=== PATIENT | female | born 1980 | race Caucasian/White ===

== ENCOUNTER → 2016-07-23 | Outpatient (CLI) | payer OTHER ==
[~2016-07-23] MED LIST: ALBU1AER9 INH; AMOX875T PO; DICY10CA12 PO; ESTR1TAB2 PO; FLUT1INH3 INH; MECL1TAB40 PO; MECL1TAB42 PO; PRED50TA PO; PRVHFAIN INH; SUMA50TA15 PO; TOPI50TA16 PO; ZNTT/150 PO
[2016-07-23 18:38] LABS: BASO % 0.7 %; BASO ABS # 0.05 K/uL (0-0.2); COMPLETE YES; EOS % 2.1 %; HEMATOCRIT 40.4 % (37-47); IG% 0.1 %; LYMPH % 33.6 %; LYMPH ABS # 2.41 K/uL (1.2-3.4); MEAN CORPUSCULAR HEMOGLOBIN 29.1 pg (25-34); MEAN CORPUSCULAR HGB CONC 34.7 g/dl (32-36); MONO % 4.6 %; NEUT % 58.9 %; PLATELET COUNT 272 K/uL (130-400); RED BLOOD COUNT 4.81 M/uL (4.2-5.4); WHITE BLOOD COUNT 7.17 K/uL (4.8-10.8)
[2016-07-23 19:05] LABS: ALT/SGPT 21 U/L (12-78); AST/SGOT 15 U/L (15-37); BLOOD UREA NITROGEN 10 mg/dl (7-18); BUN/CREATININE RATIO 10.7 (10-20); CALCIUM 9.7 mg/dl (8.5-10.1); CARBON DIOXIDE 25 mmol/L (21-32); CHLORIDE 112 mmol/L (98-107); CREATININE 0.89 mg/dl (0.60-1.20); GLUCOSE 80 mg/dl (70-99); POTASSIUM 4.2 mmol/L (3.5-5.1); SODIUM 144 mmol/L (136-145)
[2016-07-23 19:08] LABS: ALB/GLOB RATIO 1.1 (0.9-2); ALKALINE PHOSPHATASE 63 U/L (45-117)
--- NOTE | 2016-07-23 19:12 | DIAGNOSTIC IMAGING REPORT ---
CHEST AND ABDOMEN 2 VIEWS HISTORY: R10.30 Lower abdominal painRAD COMPARISON: Chest 05/15/2015. FINDINGS: The lungs are clear. The cardiomediastinal silhouette is within normal limits. There is no pneumoperitoneum or pneumatosis. The bowel gas pattern is unremarkable. No evidence for bowel obstruction. No renal or ureteral calculi. There are are a few calcifications in the deep pelvis consistent with phleboliths. IMPRESSION: No acute cardiopulmonary process. No evidence for bowel obstruction. Electronically signed by: Krishan Vera M.D. 07/23/2016 7:10 PM Dictated Date/Time: 07/23/2016 7:08 PM
== END | disposition home or self-care (01) ==
LOC: C.LAB 17:49
PROVIDERS: ATTEND Nurse Practitioner Adult Health
DX: K52.9 Noninfective gastroenteritis and colitis, unspecified (principal); R10.30 Lower abdominal pain, unspecified

== ENCOUNTER 2016-08-10 00:20 | Emergency (ER) | payer OTHER ==
[~2016-08-10] VITALS: Ht 154.9 cm; Wt 48.9 kg
[~2016-08-10 00:20] MED LIST changes: -ALBU1AER9 INH; -AMOX875T PO; -MECL1TAB40 PO; -PRED50TA PO
[2016-08-10 00:24] VITALS: TEMP 36.8; Ht 154.9 cm; Wt 48.9 kg
[2016-08-10] MEDS ORDERED: LIDOCAINE HCL 2% VISC SOLN 20 ML UDC MT STA (00:38)
[2016-08-10] MEDS ORDERED: ALBUT/IPRATROP 3MG/0.5MG NEB 3 ML VIAL INH STA (00:38)
[2016-08-10] MEDS ORDERED: BUTALBITAL/ASA/CAFFEINE/COD 50/325/40/30 MG CAP PO STA (00:41)
[2016-08-10 01:00] VITALS: O2SAT 99
[2016-08-10] MEDS ORDERED: AMOXICILLIN/CLAVULANATE TAB 875 MG TAB PO STA (01:20)
[2016-08-10] MEDS ORDERED: ALBUTEROL HFA 8 GM INHALER INH STA (01:20)
[2016-08-10] MEDS ORDERED: PRED50TA PO (02:01)
[2016-08-10] MEDS ORDERED: AMOX875T PO (02:01)
[2016-08-10 02:15] VITALS: BP 120/86; PULSE 85; O2SAT 99
--- NOTE | 2016-08-10 04:12 | EMERGENCY ROOM VISIT NOTE ---
History First contact with patient: 00:28 Chief Complaint: SORETHROAT Stated Complaint: SORE THROAT AND CAN'T BREATHE History of Present Illness The patient is a 35 year old female who presents to the Emergency Room with complaints of cough, congestion, sinus pain congestion and headache for the past week. Patient does smoke. She also has a sore throat. Subjective fever and chills but no temperature was taken. Patient denies neck stiffness, chest pain, dyspnea, abdominal pain, vomiting, diarrhea. She is able tolerate by mouth fluids and food. Review of Systems See HPI for pertinent positives & negatives. A total of 10 systems reviewed and were otherwise negative. Past Medical/Surgical History Medical Problems: (1) Asthma (2) Bronchitis (3) section (4) Contusion of right leg (5) COPD (chronic obstructive pulmonary disease) (6) Ear pain (7) Endometriosis (8) Hair follicle infection (9) Headache (10) Leukocytosis (11) Migraine (12) Migraine (13) Migraines (14) Ovarian cyst (15) Ovarian cyst (16) Partial hysterectomy (17) Pharyngitis (18) Pharyngitis (19) Pneumonia (20) Productive cough (21) SOB (shortness of breath) (22) Tubal ligation (23) URI (upper respiratory infection) Surgical Problems: (1) History of right oophorectomy Family History FH: heart disease FHx: pulmonary embolism Social History Smoking Status: Current Every Day Smoker Alcohol Use: none Drug Use: none Marital Status: Housing Status: lives with family Occupation Status: employed Current/Historical Medications Scheduled Amoxicillin & Pot Clavulanate (Augmentin 875-125 mg), 1 TAB PO BID Estradiol (Estrace), 1 MG PO HS Fluticasone Furoate (Inhalatio (Arnuity Ellipta), 1 PUFF INH QAM Prednisone (Prednisone), 50 MG PO DAILY Ranitidine (Zantac), 150 MG PO BID Topiramate (Topamax), 50 MG PO QAM Topiramate (Topamax), 100 MG PO HS Scheduled PRN Albuterol (Ventolin Hfa), 2 PUFF INH QID PRN for Shortness of Breath Dicyclomine Hcl (Dicyclomine Hcl), 10 MG PO TID PRN for ABD PAIN Meclizine Hcl (Meclizine Hcl), 25 MG PO TID PRN for VERTIGO Sumatriptan Succinate (Imitrex), 50 MG PO PRN PRN for Migraine Allergies Coded Allergies: No Known Allergies (Verified , 08/08/16) Physical Exam Vital Signs Date Time Temp Pulse Resp B/P Pulse Ox O2 Delivery O2 Flow Rate FiO2 08/10/16 02:15 85 18 120/86 99 08/10/16 01:00 99 Room Air 08/10/16 00:24 36.8 86 18 102/66 100 Room Air 08/10/16 00:24 100 Room Air Pain Rating (0-10): 6.0 Physical Exam VITALS: Vitals are noted on the nurse's note and reviewed by myself. Vital signs stable. GENERAL: Pleasant female, in no acute distress, nondiaphoretic, well-developed well-nourished. SKIN: The skin was without rashes, erythema, edema, or bruising. There is no tenting of the skin. Capillary reflex less than 2 seconds. HEAD: Normocephalic atraumatic. EARS: External auditory canals clear, tympanic membranes pearly parks without erythema or effusion bilaterally. EYES: Pupils equal round and reactive to light and accommodation. Conjunctivae without injection, sclerae without icterus. Extraocular movements intact. NOSE: Patent, turbinates without inflammation or discharge. Bilateral maxillary sinus tenderness. MOUTH: Mucous membranes moist. Pharynx without erythema or exudate. Uvula midline. Airway patent. Tongue does not deviate. NECK: Supple without nuchal rigidity. No lymphadenopathy. No thyromegaly. Cervical spine is nontender. No JVD. No meningeal signs HEART: Regular rate and rhythm without murmurs gallops or rubs. LUNGS: Mild diffuse end expiratory wheezes, without rales or rhonchi. No dullness to percussion. No retractions or accessory muscle use. ABDOMEN: Positive bowel sounds x 4. Normal tympanic percussion. Soft, nontender, without masses or organomegaly. Nielsen sign negative. No guarding or rebound tenderness. MUSCULOSKELETAL: No muscle atrophy, erythema, or edema noted. NEURO: Patient was alert and oriented to person place and time. Normal sensation to light and sharp touch. No focal neurological deficits. Medical Decision & Procedures Medications Administered Medications (Trade) Dose Ordered Sig/Augusto Route Start Time Stop Time Status Last Admin Dose Admin Lidocaine HCl (Viscous Lidocaine 2% Soln) 10 ml NOW STAT MT 08/10/16 00:38 08/10/16 00:40 DC 08/10/16 00:51 10 ML Albuterol/ Ipratropium (Duoneb) 3 ml NOW STAT INH 08/10/16 00:38 08/10/16 00:40 DC 08/10/16 00:50 3 ML Prednisone (PredniSONE TAB) 60 mg NOW STAT PO 08/10/16 00:38 08/10/16 00:40 DC 08/10/16 00:50 60 MG Butalbital/ Aspirin/Caffeine/ Codeine (Fiorinal W/ Codeine Cap) 1 cap NOW STAT PO 08/10/16 00:41 08/10/16 00:43 DC 08/10/16 01:05 1 CAP Amoxicillin/ Clavulanate Potassium (Augmentin Tab) 875 mg NOW STAT PO 08/10/16 01:20 08/10/16 01:21 DC 08/10/16 02:06 875 MG Albuterol (Ventolin Hfa Inhaler) 2 puffs ONE STAT INH 08/10/16 01:20 08/10/16 01:21 DC 08/10/16 02:06 2 PUFFS ED Course Prior records/ancillary studies reviewed. Triage Nursing notes reviewed. Additional history obtained from family The patient's history was concerning for cold symptoms Differential diagnosis: Etiologies such as viral syndrome, otitis, pharyngitis, pneumonia, influenza, meningitis, sinusitis, sepsis, bacteremia, as well as others were entertained. Physical examination: Patient is alert, interactive and tolerating fluids ER treatment provided: Nebulizer, Augmentin On reassessment the patient felt better. Diagnostics interpreted by me: The labs revealed negative strep test, and for culture Imaging studies: Chest x-ray with no acute consolidation, pneumothorax or free air per my interpretation This appears to be consistent with sinusitis. Patient was started on antibiotics as symptoms have been present for greater than a week. She no signs of meningitis. She is afebrile and nontoxic.. She was advised to take medications as directed and to follow-up with family doctor in a few days or here in the ER sooner for high fevers, lethargy, neck status, worsening signs or symptoms or as needed. She was strongly encouraged to quit smoking. By the evaluation outlined above emergent etiologies such as otitis, pharyngitis, pneumonia, meningitis, urinary tract infection, sepsis, bacteremia, as well as others were deemed relatively unlikely. The pt informed about the findings as listed above. All questions were answered and pleased with the treatment. Return instructions were outlined and the patient was discharged in stable condition. Outpatient prescription management: augmentin, prednisone Referral: The patient was referred back to their primary care physician for follow-up in 2 to 3 days for a recheck of the current condition. Medical Decision as above Impression Primary Impression: Acute maxillary sinusitis Departure Information Dispostion Home / Self-Care Condition GOOD Prescriptions Prednisone (Prednisone) 50 Mg Tab 50 MG PO DAILY for 4 Days, #4 TAB Prov: Lupe Cristina PA-C 08/10/16 Amoxicillin & Pot Clavulanate (Augmentin 875-125 mg) 1 Tab Tab 1 TAB PO BID for 9 Days, #18 TAB Prov: Lupe Cristina PA-C 08/10/16 Forms HOME CARE DOCUMENTATION FORM, IMPORTANT VISIT INFORMATION Patient Instructions Sinusitis Acute, [facility] Additional Instructions Amoxicillin Clavulanate (Augmentin) 875mg: Take one pill twice daily for 10 days for your infection. All antibiotics can cause diarrhea. If this occurs and you feel worse or it does not resolve in 1-2 days follow up with your doctor or return to the Emergency Department as this could be signs of serious underlying problems. Any medication can cause an allergic reaction, stop the pills immediately and return to the ER for rash, hives, breathing difficulties, or swelling. Albuterol Inhaler: Take 2 puffs four times daily for five days, then as needed. Prednisone 50mg: Once daily until the prescription is finished. It is best to take this earlier in the day as some patients note occasional difficulty falling asleep when taken in the late evening. Acetaminophen(Tylenol) may be used for fever or pain. Use 1000mg every six hours as needed. Avoid using more than 3000mg in a 24 hour period. (AND/OR) Ibuprofen(Motrin, Advil) may be used for fever or pain. Use 600mg every six hours as needed. Take with food. Avoid using more than 2400mg in a 24 hour period. Do not use 2400mg per day for more than three consecutive days without physician direction. Prolonged inappropriate use can lead to stomach upset or ulcers. Rest and drink plenty of fluids. Avoid smoke/smoking, fumes, dust, or any triggers in the past that may have affected your breathing. Continue current medications. Return to the ER for chest pain, difficulty breathing, fevers, vomiting, worsening of your condition, or as needed. Follow up with your primary physician this week for a recheck of your current condition.
--- NOTE | 2016-08-10 08:01 | DIAGNOSTIC IMAGING REPORT ---
CHEST 2 VIEWS ROUTINE HISTORY: cough/congestion COMPARISON: Chest 07/23/2016. FINDINGS: The lungs are clear. Cardiac silhouette is normal in size. No pleural effusions. No pneumothorax. IMPRESSION: No acute process. Electronically signed by: Krishan Vera M.D. 08/10/2016 8:00 AM Dictated Date/Time: 08/10/2016 7:58 AM
== END 2016-08-10 02:16 | disposition home or self-care (01) ==
LOC: C.EDB 00:21 → C.EDA 02:16
DX: J01.00 Acute maxillary sinusitis, unspecified (principal); J44.9 Chronic obstructive pulmonary disease, unspecified; J45.909 Unspecified asthma, uncomplicated; N83.209 Unspecified ovarian cyst, unspecified side; F17.200 Nicotine dependence, unspecified, uncomplicated; Z98.51 Tubal ligation status; Z90.710 Acquired absence of both cervix and uterus; Z87.828 Personal history of other (healed) physical injury and trauma; Z86.19 Personal history of other infectious and parasitic diseases; Z79.899 Other long term (current) drug therapy; Z82.49 Family history of ischemic heart disease and other diseases of the circulatory system

== ENCOUNTER → 2016-08-13 | Day surgery (SDC) | payer OTHER ==
[2016-08-08 13:22] VITALS: BMI 21.0
[~2016-08-13] VITALS: Ht 154.9 cm; Wt 50.0 kg
[~2016-08-13] MED LIST changes: +AMOX875T PO; +LIDOCAINE HCL 2% 2 ML VIAL (20MG/ML) ONE; +PRED50TA PO; +PROPOFOL IV EMULSION 10 MG/ML 20 ML VIAL IV ONE; +SODIUM CHLORIDE 0.9% 500ML 500 ML IV ONE
[2016-08-13 14:09] VITALS: Ht 154.9 cm; Wt 50.0 kg
--- NOTE | 2016-08-13 15:10 | Endo History and Physical ---
History & Physical Date of Service: Aug 13, 2016. Chief Complaint: DIARRHEA, ABD CRAMPING. Referring Physician: KATIE LI History of Present Illness 35 yo CF who presents for colonoscopy secondary to diarrhea and abdominal cramping. Past Medical History Asthma, Reflux, Gynecological Problems, COPD Past Surgical History Hx Cardiac Surgery: No Hx Internal Defibrillator: No Hx Pacemaker: No Hx Abdominal Surgery: Yes (LAPAROSCOPY, X 2, TUBAL ligation, PARTIAL HYSTERECTOMY) Hx of Implantable Prosthesis: No Hx Post-Op Nausea and Vomiting: Yes Hx Cancer Surgery: No Hx Thoracic Surgery: No Hx Orthopedic: No Hx Urinary Tract Surgery: No Family History None Social History Smoking Status: Current Every Day Smoker Hx Substance Use: No Hx Alcohol Use: No Allergies Coded Allergies: No Known Allergies (Verified , 08/08/16) Current Medications Reported Home Medications Medications Dose Route/Sig Max Daily Dose Days Date Category Prednisone 50 Mg Tab 50 Mg PO DAILY 4 08/10/16 Rx Augmentin 875-125 mg (Amoxicillin & Pot Clavulanate) 1 Tab Tab 1 Tab PO BID 9 08/10/16 Rx Ventolin Hfa (Albuterol) 60 Puffs/5400 Mcg Aers 2 Puff INH QID PRN 08/08/16 Reported Topamax (Topiramate) 50 Mg Tab 100 Mg PO HS 08/08/16 Reported Topamax (Topiramate) 50 Mg Tab 50 Mg PO QAM 08/08/16 Reported Imitrex (Sumatriptan Succinate) 50 Mg Tab 50 Mg PO PRN PRN 08/08/16 Reported Zantac (Ranitidine HCl) 150 Mg Tab 150 Mg PO BID 08/08/16 Reported Meclizine Hcl 25 Mg Tab 25 Mg PO TID PRN 08/08/16 Reported Dicyclomine Hcl 10 Mg Cap 10 Mg PO TID PRN 08/08/16 Reported Arnuity Ellipta (Fluticasone Furoate (Inhalatio) 100 Mcg/Act Inh 1 Puff INH QAM 08/08/16 Reported Estrace (Estradiol) 1 Mg Tab 1 Mg PO HS 02/28/16 Reported Vital Signs Weight (Kilograms): 50.00 Height (Feet): 5 Height (Inches): 1 Date Time Temp Pulse Resp B/P Pulse Ox O2 Delivery O2 Flow Rate FiO2 08/13/16 14:17 36.4 77 18 102/60 96 Room Air Physical Exam General Appearance: WD/WN, no apparent distress Respiratory/Chest: Auscultation: breath sounds normal Cardiovascular: Heart Auscultation: RRR Abdomen: Bowel Sounds: normal Inspection & Palpation: soft, non-distended, no tenderness, guarding & rebound Assessment and Plan Assessment: 35 yo CF who presents for colonoscopy secondary to diarrhea and abdominal cramping. Plan: Proceed with colonoscopy.
--- NOTE | 2016-08-13 15:29 | Discharge Instructions ---
Endoscopy Patient Instructions Date / Procedure(s) Performed Aug 13, 2016. Colonoscopy Allergy Information Coded Allergies: No Known Allergies (Verified , 08/08/16) Discharge Date / Findings Aug 13, 2016. Internal hemorrhoids Random colon biopsies Stool studies collected Medication Instructions OK to resume all medications today as prescribed. Reported Home Medications Medications Dose Route/Sig Max Daily Dose Days Date Category Prednisone 50 Mg Tab 50 Mg PO DAILY 4 08/10/16 Rx Augmentin 875-125 mg (Amoxicillin & Pot Clavulanate) 1 Tab Tab 1 Tab PO BID 9 08/10/16 Rx Ventolin Hfa (Albuterol) 60 Puffs/5400 Mcg Aers 2 Puff INH QID PRN 08/08/16 Reported Topamax (Topiramate) 50 Mg Tab 100 Mg PO HS 08/08/16 Reported Topamax (Topiramate) 50 Mg Tab 50 Mg PO QAM 08/08/16 Reported Imitrex (Sumatriptan Succinate) 50 Mg Tab 50 Mg PO PRN PRN 08/08/16 Reported Zantac (Ranitidine HCl) 150 Mg Tab 150 Mg PO BID 08/08/16 Reported Meclizine Hcl 25 Mg Tab 25 Mg PO TID PRN 08/08/16 Reported Dicyclomine Hcl 10 Mg Cap 10 Mg PO TID PRN 08/08/16 Reported Arnuity Ellipta (Fluticasone Furoate (Inhalatio) 100 Mcg/Act Inh 1 Puff INH QAM 08/08/16 Reported Estrace (Estradiol) 1 Mg Tab 1 Mg PO HS 02/28/16 Reported Provider Instructions Activity Restrictions - No exercising or heavy lifting for 24 hours. - Do not drink alcohol the day of the procedure. - Do not drive a car or operate machinery until the day after the procedure. - Do not make any important decisions or sign important papers in 24 hours after the procedure. Following Day: - Return to full activity which may include returning to work/school. Diet Start your diet with liquids and light foods (jello, soup, juice, toast). Then eat your usual diet if not nauseated. Treatment For Common After Affects For mild abdominal pain, bloating, or excessive gas: - Rest - Eat lightly - Lie on right side Follow-Up Information Follow-up with KATIE LI as scheduled Anesthesia Information What You Should Know You have had a procedure that required some medicine to reduce anxiety and discomfort. This treatment is called moderate sedation. After receiving the treatment, you may be sleepy, but you will be able to breathe on your own. The effects of the treatment may last for several hours. Follow these instructions along with Activity/Diet recommendations noted above: * Do NOT do anything where dizziness or clumsiness would be dangerous. * Rest quietly at home today, then you can be up and about tomorrow. * Have a responsible person stay with you the rest of today. * You may have had an I.V. today. If so, you may take the dressing off later today. Recommendations Call your doctor if: * Trouble breathing * Continuous vomiting for more than 24 hours * Temperature above 101 degrees * Severe abdominal pain or bloating * Pain not relieved by pain medicine ordered * There is increased drainage or redness from any incision * A large amount of rectal bleeding greater than 2-3 tablespoons. (If you had a polyp/s removed or have hemorrhoids, a small amount of blood - from the rectum is to be expected.) * You have any unanswered questions or concerns. IN THE EVENT OF A SERIOUS EMERGENCY, GO TO THE NEAREST EMERGENCY ROOM Your discharge instructions were prepared by provider Domingo Allen. Patient Instructions Signature Page Rita Huff Patient (or Guardian) Signature/Date: I have read and understand the instructions given to me by my caregivers. Caregiver/RN/Doctor Signature/Date: The above-named patient and/or guardian has received patient instructions on this date. + Original Patient Signature Page (only) stays with chart. Please make copy for patient.
--- NOTE | 2016-08-13 15:35 | GI REPORT ---
Procedure Date: 08/13/2016 2:57 PM Procedure: Colonoscopy Indications: Chronic diarrhea Medicines: Monitored Anesthesia Care Complications: No immediate complications. Estimated Blood Loss: Estimated blood loss: none. Procedure: Pre-Anesthesia Assessment: - Prior to the procedure, a History and Physical was performed, and patient medications and allergies were reviewed. The patient's tolerance of previous anesthesia was also reviewed. The risks and benefits of the procedure and the sedation options and risks were discussed with the patient. All questions were answered, and informed consent was obtained. Prior Anticoagulants: The patient has taken no previous anticoagulant or antiplatelet agents. ASA Grade Assessment: II - A patient with mild systemic disease. After reviewing the risks and benefits, the patient was deemed in satisfactory condition to undergo the procedure. After I obtained informed consent, the scope was passed under direct vision. Throughout the procedure, the patient's blood pressure, pulse, and oxygen saturations were monitored continuously. The scope was introduced through the anus and advanced to the terminal ileum. The colonoscopy was performed without difficulty. The patient tolerated the procedure well. The quality of the bowel preparation was good. The terminal ileum, ileocecal valve, appendiceal orifice, and rectum were photographed. Findings: Non-bleeding internal hemorrhoids were found during retroflexion. The hemorrhoids were small. Multiple random biopsies were obtained with cold forceps for histology in the entire colon. Fluid aspiration for cytology was performed in the entire colon. Impression: - Non-bleeding internal hemorrhoids. - Multiple random biopsies were obtained in the entire colon. - Fluid aspiration was performed. Recommendation: - Resume previous diet. - Continue present medications. - Repeat colonoscopy for surveillance based on pathology results. - Return to primary care physician as previously scheduled. Domingo Allen DO 08/13/2016 3:35:08 PM This report has been signed electronically. Note Initiated On: 08/13/2016 2:57 PM
--- NOTE | 2016-08-13 15:49 | Anesthesiology Progress Note ---
Anesthesia Post Op Note Date & Time Aug 13, 2016 at 15:49 Vital Signs Pain Intensity: 0 Vital Signs Past 12 Hours Date Time Temp Pulse Resp B/P Pulse Ox O2 Delivery O2 Flow Rate FiO2 08/13/16 15:46 78 18 112/54 99 Room Air 08/13/16 15:31 78 18 101/55 99 Room Air 08/13/16 14:17 36.4 77 18 102/60 96 Room Air Notes Mental Status: alert / awake / arousable, participated in evaluation Pt Amnestic to Procedure: Yes Nausea / Vomiting: adequately controlled Pain: adequately controlled Airway Patency, RR, SpO2: stable & adequate BP & HR: stable & adequate Hydration State: stable & adequate Anesthetic Complications: no major complications apparent
[2016-08-13 16:06] VITALS: BP 116/56; PULSE 85; O2SAT 99
== END | disposition home or self-care (01) ==
LOC: C.GI 13:52
PROVIDERS: ATTEND Internal Medicine
DX: R19.7 Diarrhea, unspecified (principal); K57.30 Diverticulosis of large intestine without perforation or abscess without bleeding; K21.9 Gastro-esophageal reflux disease without esophagitis

== ENCOUNTER → 2016-08-25 | Outpatient (CLI) | payer OTHER ==
[~2016-08-25] MED LIST changes: -AMOX875T PO; -LIDOCAINE HCL 2% 2 ML VIAL (20MG/ML) ONE; -PRED50TA PO; -PROPOFOL IV EMULSION 10 MG/ML 20 ML VIAL IV ONE; -SODIUM CHLORIDE 0.9% 500ML 500 ML IV ONE
[2016-08-28 16:28] LABS: IGA SERUM 198 mg/dL (81-463); TIS TRANS IGA 1 U/mL (<4)
== END | disposition home or self-care (01) ==
LOC: C.LAB 17:59
PROVIDERS: ATTEND Internal Medicine
DX: R19.7 Diarrhea, unspecified (principal); R10.9 Unspecified abdominal pain

== ENCOUNTER → 2016-10-14 | Outpatient (CLI) | payer OTHER ==
[~2016-10-14] MED LIST changes: +AMOX875T PO
[2016-10-15 07:33] LABS: ESTIMATED AVERAGE GLUCOSE 88 mg/dl; HA1C FLAG Normal (Normal)
== END | disposition home or self-care (01) ==
LOC: C.LAB 16:58
PROVIDERS: ATTEND Nurse Practitioner Adult Health
DX: R20.2 Paresthesia of skin (principal)

== ENCOUNTER → 2016-10-27 | Outpatient (CLI) | payer OTHER ==
--- NOTE | 2016-10-27 08:37 | DIAGNOSTIC IMAGING REPORT ---
GI W/AIR SMALL BOWEL ROUTINE CLINICAL HISTORY: K52.9 Chronic diarrhea of unknown [id number] Lower abdominal ppain COMPARISON STUDY: None FLUOROSCOPY TIME: 3.8 minutes. FINDINGS: Patient initiated swallowing function well. Esophagus normal in course and caliber. Gastric esophageal junction is normal. Mucosal pattern and transit time throughout the small bowel within normal limits. Spot films the terminal ileum are within normal limits. Stomach is unremarkable. IMPRESSION: Normal study Electronically signed by: Ramakrishna Abernathy M.D. 10/27/2016 8:35 AM Dictated Date/Time: 10/27/2016 8:35 AM
== END | disposition home or self-care (01) ==
LOC: C.RAD 07:13
PROVIDERS: ATTEND Registered Nurse
DX: K52.9 Noninfective gastroenteritis and colitis, unspecified (principal); R10.30 Lower abdominal pain, unspecified

== ENCOUNTER → 2016-11-26 | Outpatient (CLI) | payer OTHER ==
--- NOTE | 2016-11-26 09:46 | DIAGNOSTIC IMAGING REPORT ---
BILIARY ABDOMEN LIMITED CLINICAL HISTORY: Nausea, vomiting, chronic diarrhea. COMPARISON STUDY: No previous studies for comparison. FINDINGS: The pancreas appears sonographically normal. The liver appears sonographically normal. The gallbladder appears sonographically normal. There is no ductal dilatation. The common bile duct measures 2 mm. There is no right-sided hydronephrosis. IMPRESSION: Normal biliary ultrasound. Electronically signed by: Sourav Weber M.D. 11/26/2016 9:45 AM Dictated Date/Time: 11/26/2016 9:44 AM
== END | disposition home or self-care (01) ==
LOC: C.ULTR 09:19
PROVIDERS: ATTEND Registered Nurse
DX: R11.2 Nausea with vomiting, unspecified (principal); K52.9 Noninfective gastroenteritis and colitis, unspecified; R10.9 Unspecified abdominal pain

== ENCOUNTER 2017-02-11 09:34 | Emergency (ER) | payer OTHER ==
[~2017-02-11] VITALS: Ht 154.9 cm; Wt 48.3 kg
[~2017-02-11 09:34] MED LIST changes: -AMOX875T PO
[2017-02-11 09:35] VITALS: TEMP 36.6; Ht 154.9 cm; Wt 48.3 kg
[2017-02-11 10:02] VITALS: O2SAT 98
[2017-02-11] MEDS ORDERED: ONDANSETRON 8 MG/54 ML D5W IV STA (10:08)
[2017-02-11] MEDS ORDERED: SODIUM CHLORIDE 0.9% 1000ML 1,000 ML IV STA (10:08)
--- NOTE | 2017-02-11 10:46 | DIAGNOSTIC IMAGING REPORT ---
HEAD CT NONCONTRAST CT DOSE: 638.56 mGycm HISTORY: EVALUATE ALTERED MENTAL STATUS/WEAKNESS TECHNIQUE: Multiaxial CT images of the head were performed without the use of intravenous contrast. Automated exposure control was utilized for this study. A dose lowering technique was utilized adhering to the principles of ALARA. Comparison: Head CT 12/31/2011. Findings: The paranasal sinuses and mastoid air cells are clear. The calvarium and skull base are intact. The ventricles and sulci are within normal limits. There is no mass, hematoma, midline shift, or acute infarct. Impression: No acute intracranial abnormality. Electronically signed by: Krishan Vera M.D. 02/11/2017 10:45 AM Dictated Date/Time: 02/11/2017 10:38 AM
[2017-02-11 10:58] LABS: BASO % 0.6 %; BASO ABS # 0.04 K/uL (0-0.2); COMPLETE YES; EOS % 0.9 %; HEMATOCRIT 39.5 % (37-47); LYMPH ABS # 2.34 K/uL (1.2-3.4); MEAN CELL VOLUME 84.9 fL (80-100); MEAN CORPUSCULAR HGB CONC 34.2 g/dl (32-36); MEAN PLATELET VOLUME 10.2 fL (7.4-10.4); MONO % 5.2 %; NEUT % 57.3 %; PLATELET COUNT 285 K/uL (130-400); RED BLOOD COUNT 4.65 M/uL (4.2-5.4)
[2017-02-11 11:07] LABS: PROTHROMBIN TIME (PATIENT) 10.7 SECONDS (9.0-12.0)
[2017-02-11 11:13] LABS: BUN/CREATININE RATIO 5.7 (10-20); CALCIUM 9.2 mg/dl (8.5-10.1); POTASSIUM 3.1 mmol/L (3.5-5.1)
[2017-02-11] MEDS ORDERED: POTASSIUM CHLORIDE 10 MEQ TABCR PO STA (11:42)
--- NOTE | 2017-02-11 11:42 | EMERGENCY ROOM VISIT NOTE ---
History Report prepared by Yobany: Latoya Fernandez Under the Supervision of: Dr. Sharan Grant D.O. First contact with patient: 10:01 Chief Complaint: NEURO SYMPTOMS Stated Complaint: RIGHT SIDE NUMBNESS,RIGHT EYE DROOPINESS History of Present Illness The patient is a 36 year old female who presents to the Emergency Room with complaints of persistent neuro symptoms starting yesterday at 1415. She reports that her right arm and leg became tingly and numb yesterday. Her right hand seemed to spasm and she was unable to use her right hand. Her right eye seems to be droopy. Currently, her symptoms seem to be improved. Her right leg is still numb and her hand feels sore, but she is able to use it. She reports nausea. She is able to walk. She denies any chest pain. She has a history of migraines. Source of History: patient Onset: 1415 yesterday Position: other (global) Quality: other (neuro symptoms) Timing: other (persistent) Associated Symptoms: + nausea, + numbness (right arm, right leg), No chest pain Note: Pt reports right eye droopy, right hand spasm. Review of Systems See HPI for pertinent positives & negatives. A total of 10 systems reviewed and were otherwise negative. Past Medical & Surgical Medical Problems: (1) Asthma (2) Bronchitis (3) section (4) Contusion of right leg (5) COPD (chronic obstructive pulmonary disease) (6) Ear pain (7) Endometriosis (8) Hair follicle infection (9) Headache (10) Leukocytosis (11) Migraine (12) Migraine (13) Migraines (14) Ovarian cyst (15) Ovarian cyst (16) Partial hysterectomy (17) Pharyngitis (18) Pharyngitis (19) Pneumonia (20) Productive cough (21) SOB (shortness of breath) (22) Tubal ligation (23) URI (upper respiratory infection) Surgical Problems: (1) History of right oophorectomy Family History FH: heart disease FHx: pulmonary embolism Social History Smoking Status: Current Every Day Smoker Alcohol Use: none Drug Use: none Marital Status: Housing Status: lives with family Occupation Status: employed Current/Historical Medications Scheduled Estradiol (Estrace), 1 MG PO HS Fluticasone Furoate (Inhalatio (Arnuity Ellipta), 1 PUFF INH QAM Ranitidine (Zantac), 150 MG PO BID Topiramate (Topamax), 50 MG PO QAM Topiramate (Topamax), 100 MG PO HS Scheduled PRN Albuterol (Ventolin Hfa), 2 PUFF INH QID PRN for Shortness of Breath Dicyclomine Hcl (Dicyclomine Hcl), 10 MG PO TID PRN for ABD PAIN Meclizine Hcl (Meclizine Hcl), 25 MG PO TID PRN for VERTIGO Sumatriptan Succinate (Imitrex), 50 MG PO PRN PRN for Migraine Allergies Coded Allergies: No Known Allergies (Verified , 08/08/16) Physical Exam Vital Signs Date Time Temp Pulse Resp B/P (MAP) Pulse Ox O2 Delivery O2 Flow Rate FiO2 02/11/17 12:09 55 18 90/65 98 Room Air 02/11/17 11:24 57 18 92/55 02/11/17 10:02 98 Room Air 02/11/17 09:59 66 02/11/17 09:35 36.6 65 16 126/83 99 Physical Exam VITAL SIGNS: were reviewed as above. GENERAL:Non-toxic in appearance. SKIN: Warm dry and pink. HEAD: Normocephalic and atraumatic. OROPHARYNX: Is clear and moist NECK: Supple without lymphadenopathy or meningismus. LUNGS: clear. HEART: Regular rate and rhythm. ABDOMEN: Soft and nontender. EXTREMITIES: Warm and well perfused. NEUROLOGICALLY: Awake alert and oriented without focal deficit. Cranial nerves 2 -12 are intact. There is no pronator drift. Cerebellar testing is within normal limits. There is no nystagmus. There is no facial droop. Speech is clear. Vision is grossly normal. MUSCULOSKELETAL: Good muscle tone. No evidence of trauma. Medical Decision & Procedures ER Provider Diagnostic Interpretation: Radiology results as stated below per my review and radiologist interpretation: HEAD CT NONCONTRAST CT DOSE: 638.56 mGycm HISTORY: EVALUATE ALTERED MENTAL STATUS/WEAKNESS TECHNIQUE: Multiaxial CT images of the head were performed without the use of intravenous contrast. Automated exposure control was utilized for this study. A dose lowering technique was utilized adhering to the principles of ALARA. Comparison: Head CT 12/31/2011. Findings: The paranasal sinuses and mastoid air cells are clear. The calvarium and skull base are intact. The ventricles and sulci are within normal limits. There is no mass, hematoma, midline shift, or acute infarct. Impression: No acute intracranial abnormality. Electronically signed by: Krishan Vera M.D. 02/11/2017 10:45 AM Dictated Date/Time: 02/11/2017 10:38 AM Laboratory Results 02/11/17 09:50 Red Blood Count 4.65, Mean Corpuscular Volume 84.9, Mean Corpuscular Hemoglobin 29.0, Mean Corpuscular Hemoglobin Concent 34.2, Mean Platelet Volume 10.2, Neutrophils (%) (Auto) 57.3, Lymphocytes (%) (Auto) 36.0, Monocytes (%) (Auto) 5.2, Eosinophils (%) (Auto) 0.9, Basophils (%) (Auto) 0.6, Neutrophils # (Auto) 3.72, Lymphocytes # (Auto) 2.34, Monocytes # (Auto) 0.34, Eosinophils # (Auto) 0.06, Basophils # (Auto) 0.04 02/11/17 09:50 Test 02/11/17 09:50 White Blood Count 6.50 K/uL (4.8-10.8) Red Blood Count 4.65 M/uL (4.2-5.4) Hemoglobin 13.5 g/dL (12.0-16.0) Hematocrit 39.5 % (37-47) Mean Corpuscular Volume 84.9 fL (80-100) Mean Corpuscular Hemoglobin 29.0 pg (25-34) Mean Corpuscular Hemoglobin Concent 34.2 g/dl (32-36) Platelet Count 285 K/uL (130-400) Mean Platelet Volume 10.2 fL (7.4-10.4) Neutrophils (%) (Auto) 57.3 % Lymphocytes (%) (Auto) 36.0 % Monocytes (%) (Auto) 5.2 % Eosinophils (%) (Auto) 0.9 % Basophils (%) (Auto) 0.6 % Neutrophils # (Auto) 3.72 K/uL (1.4-6.5) Lymphocytes # (Auto) 2.34 K/uL (1.2-3.4) Monocytes # (Auto) 0.34 K/uL (0.11-0.59) Eosinophils # (Auto) 0.06 K/uL (0-0.5) Basophils # (Auto) 0.04 K/uL (0-0.2) RDW Standard Deviation 39.2 fL (36.4-46.3) RDW Coefficient of Variation 12.8 % (11.5-14.5) Immature Granulocyte % (Auto) 0.0 % Immature Granulocyte # (Auto) 0.00 K/uL (0.00-0.02) Prothrombin Time 10.7 SECONDS (9.0-12.0) Prothromb Time International Ratio 1.0 (0.9-1.1) Activated Partial Thromboplast Time 27.1 SECONDS (21.0-31.0) Partial Thromboplastin Ratio 1.0 Anion Gap 6.0 mmol/L (3-11) Est Creatinine Clear Calc Drug Dose 58.6 ml/min Estimated GFR () 83.9 Estimated GFR (Non- 72.4 BUN/Creatinine Ratio 5.7 (10-20) Calcium Level 9.2 mg/dl (8.5-10.1) Laboratory results as stated above per my review. Medications Administered Medications (Trade) Dose Ordered Sig/Augusto Route Start Time Stop Time Status Last Admin Dose Admin Sodium Chloride 1,000 ml @ 999 mls/hr Q1H1M STAT IV 02/11/17 10:08 02/11/17 11:08 DC 02/11/17 10:12 999 MLS/HR Ondansetron HCl (Zofran 8mg Iv) 8 mg NOW STAT IV 02/11/17 10:08 02/11/17 10:10 DC 02/11/17 10:40 8 MG Potassium Chloride (Klor-Con M10) 40 meq NOW STAT PO 02/11/17 11:42 02/11/17 11:43 DC 02/11/17 12:07 40 MEQ ECG Indication: nausea Rate (beats per minute): 52 Rhythm: sinus bradycardia Findings: no ectopy, other (no acute injury) ED Course 1004: Previous medical records were reviewed. The patient was evaluated in room A4B. A complete history and physical examination was performed. 1008: Ondansetron HCl 8 mg IV, NSS 1000 ml @ 999 mls/hr IV. 1142: Potassium Chloride 40 meq PO. 1143: On reevaluation, the patient is resting comfortably. I discussed the results and findings with the patient. She verbalized agreement of the treatment plan. She was discharged home. Medical Decision Differential includes acute coronary syndrome, myocardial infarction, CVA, TIA, anemia, infection, pneumonia, UTI, pyelonephritis, poor nutrition, dehydration, electrolyte disturbance,hypoglycemia. This is a 36-year-old female who presents to the ED with a chief complaint of having a right hand spasm, right arm paresthesias in the right leg paresthesias that occurred yesterday around 2:15 PM. The patient states that this morning she still had some paresthesias and tingling. Her symptoms have since resolved. She states that her right hand feels a little sore but otherwise she is not having the symptoms that she had yesterday. She reported some nausea. The patient's physical exam reveals normal vital signs. She has a normal neurologic exam. There is no sensory or motor deficits. She has normal cerebellar testing. The patient had a CT scan of the brain that was negative for acute disease. CBC is normal. EKG shows sinus bradycardia rate 52. Potassium was 3.1. The patient was treated with IV fluids and IV Zofran. She was given some oral potassium. She was told the results. She is felt to be stable for discharge and outpatient follow-up. Medication Reconcilliation Current Medication List: was personally reviewed by me Blood Pressure Screening Patient's blood pressure: Normal blood pressure Blood pressure disposition: Did not require urgent referral Impression Primary Impression: Paresthesias Additional Impression: Hypokalemia Scribe Attestation The scribe's documentation has been prepared under my direction and personally reviewed by me in its entirety. I confirm that the note above accurately reflects all work, treatment, procedures, and medical decision making performed by me. Departure Information Dispostion Home / Self-Care Referrals Marlyn Rowe C.R.N.P. (PCP) Patient Instructions My [facility] Additional Instructions Follow-up with your doctor for further care and evaluation in 1-2 days. Return to the emergency department for worsening or new symptoms or any concerns. You have been examined and treated today on an emergency basis only. This is not a substitute for, or an effort to provide, complete comprehensive medical care. It is impossible to recognize and treat all injuries or illnesses in a single emergency department visit. It is therefore important that you follow up closely with your doctor. Call as soon as possible for an appointment. Problem Qualifiers
[2017-02-11 12:09] VITALS: BP 90/65; PULSE 55; O2SAT 98
== END 2017-02-11 12:11 | disposition home or self-care (01) ==
LOC: C.EDB 09:35 → C.EDA 12:11
DX: R20.0 Anesthesia of skin (principal); E87.6 Hypokalemia; R11.0 Nausea; J44.9 Chronic obstructive pulmonary disease, unspecified

== ENCOUNTER → 2017-03-02 | Day surgery (SDC) | payer OTHER ==
[2017-02-19 13:09] VITALS: Ht 154.9 cm; Wt 47.7 kg
[~2017-03-02] VITALS: Ht 154.9 cm; Wt 47.7 kg
[~2017-03-02] MED LIST changes: +LIDOCAINE HCL 2% 2 ML VIAL (20MG/ML) ONE; +MIDAZOLAM HCL 1 MG/ML 2ML VIAL ONE; +PROPOFOL IV EMULSION 10 MG/ML 20 ML VIAL IV ONE; +SODIUM CHLORIDE 0.9% 500ML 500 ML IV ONE
--- NOTE | 2017-03-02 15:57 | Endo History and Physical ---
History & Physical Date of Service: Mar 02, 2017. Chief Complaint: nausea,vomiting,abdominal pain and reflux Referring Physician: Marlyn RAMOS History of Present Illness 36 yo CF who presents for EGD secondary to nausea, vomiting, abdominal pain and GERD Past Medical History Asthma, Reflux, Gynecological Problems, COPD Past Surgical History Hx Cardiac Surgery: No Hx Internal Defibrillator: No Hx Pacemaker: No Hx Abdominal Surgery: Yes (LAP, X2, TUBAL LIGATION, PARTIAL HYSTER, LT/RT OOPHORECTOMY) Hx of Implantable Prosthesis: No Hx Post-Op Nausea and Vomiting: Yes Hx Cancer Surgery: No Hx Thoracic Surgery: No Hx Orthopedic: No Hx Urinary Tract Surgery: No Family History None Social History Smoking Status: Current Every Day Smoker Hx Substance Use: No Hx Alcohol Use: No Allergies Coded Allergies: No Known Allergies (Verified , 02/19/17) Current Medications Reported Home Medications Medications Dose Route/Sig Max Daily Dose Days Date Category Ventolin Hfa (Albuterol) 60 Puffs/5400 Mcg Aers 2 Puff INH QID PRN 08/08/16 Reported Topamax (Topiramate) 50 Mg Tab 100 Mg PO HS 08/08/16 Reported Topamax (Topiramate) 50 Mg Tab 50 Mg PO QAM 08/08/16 Reported Imitrex (Sumatriptan Succinate) 50 Mg Tab 50 Mg PO PRN PRN 08/08/16 Reported Zantac (Ranitidine HCl) 150 Mg Tab 150 Mg PO BID 08/08/16 Reported Meclizine Hcl 25 Mg Tab 25 Mg PO TID PRN 08/08/16 Reported Dicyclomine Hcl 10 Mg Cap 10 Mg PO TID PRN 08/08/16 Reported Arnuity Ellipta (Fluticasone Furoate (Inhalatio) 100 Mcg/Act Inh 1 Puff INH QAM 08/08/16 Reported Estrace (Estradiol) 1 Mg Tab 1 Mg PO HS 02/28/16 Reported Vital Signs Weight (Kilograms): 47.73 Height (Feet): 5 Height (Inches): 1 Date Time Temp Pulse Resp B/P (MAP) Pulse Ox O2 Delivery O2 Flow Rate FiO2 03/02/17 15:16 36.8 65 18 90/63 (72) 100 Room Air Physical Exam General Appearance: WD/WN, no apparent distress Respiratory/Chest: Auscultation: breath sounds normal Cardiovascular: Heart Auscultation: RRR Abdomen: Bowel Sounds: normal Inspection & Palpation: soft, non-distended, no tenderness, guarding & rebound Assessment and Plan Assessment: 36 yo CF who presents for EGD secondary to nausea, vomiting, abdominal pain and GERD Plan: Proceed with EGD.
--- NOTE | 2017-03-02 16:33 | Discharge Instructions ---
Endoscopy Patient Instructions Date / Procedure(s) Performed Mar 02, 2017. EGD Allergy Information Coded Allergies: No Known Allergies (Verified , 02/19/17) Discharge Date / Findings Mar 02, 2017. Gastritis s/p biopsies Hiatal hernia Distal esophageal biopsies Mid-esophageal biopsies Medication Instructions OK to resume all medications today as prescribed Reported Home Medications Medications Dose Route/Sig Max Daily Dose Days Date Category Ventolin Hfa (Albuterol) 60 Puffs/5400 Mcg Aers 2 Puff INH QID PRN 08/08/16 Reported Topamax (Topiramate) 50 Mg Tab 100 Mg PO HS 08/08/16 Reported Topamax (Topiramate) 50 Mg Tab 50 Mg PO QAM 08/08/16 Reported Imitrex (Sumatriptan Succinate) 50 Mg Tab 50 Mg PO PRN PRN 08/08/16 Reported Zantac (Ranitidine HCl) 150 Mg Tab 150 Mg PO BID 08/08/16 Reported Meclizine Hcl 25 Mg Tab 25 Mg PO TID PRN 08/08/16 Reported Dicyclomine Hcl 10 Mg Cap 10 Mg PO TID PRN 08/08/16 Reported Arnuity Ellipta (Fluticasone Furoate (Inhalatio) 100 Mcg/Act Inh 1 Puff INH QAM 08/08/16 Reported Estrace (Estradiol) 1 Mg Tab 1 Mg PO HS 02/28/16 Reported Provider Instructions Activity Restrictions - No exercising or heavy lifting for 24 hours. - Do not drink alcohol the day of the procedure. - Do not drive a car or operate machinery until the day after the procedure. - Do not make any important decisions or sign important papers in 24 hours after the procedure. Following Day: - Return to full activity which may include returning to work/school. Diet Start your diet with liquids and light foods (jello, soup, juice, toast). Then eat your usual diet if not nauseated. Treatment For Common After Affects For mild abdominal pain, bloating, or excessive gas: - Rest - Eat lightly - Lie on right side Follow-Up Information Follow-up with Marlyn RAMOS as scheduled Anesthesia Information What You Should Know You have had a procedure that required some medicine to reduce anxiety and discomfort. This treatment is called moderate sedation. After receiving the treatment, you may be sleepy, but you will be able to breathe on your own. The effects of the treatment may last for several hours. Follow these instructions along with Activity/Diet recommendations noted above: * Do NOT do anything where dizziness or clumsiness would be dangerous. * Rest quietly at home today, then you can be up and about tomorrow. * Have a responsible person stay with you the rest of today. * You may have had an I.V. today. If so, you may take the dressing off later today. Recommendations Call your doctor if: * Trouble breathing * Continuous vomiting for more than 24 hours * Temperature above 101 degrees * Severe abdominal pain or bloating * Pain not relieved by pain medicine ordered * There is increased drainage or redness from any incision * A large amount of rectal bleeding greater than 2-3 tablespoons. (If you had a polyp/s removed or have hemorrhoids, a small amount of blood - from the rectum is to be expected.) * You have any unanswered questions or concerns. IN THE EVENT OF A SERIOUS EMERGENCY, GO TO THE NEAREST EMERGENCY ROOM Your discharge instructions were prepared by provider Domingo Allen. Patient Instructions Signature Page Rita Huff Patient (or Guardian) Signature/Date: I have read and understand the instructions given to me by my caregivers. Caregiver/RN/Doctor Signature/Date: The above-named patient and/or guardian has received patient instructions on this date. + Original Patient Signature Page (only) stays with chart. Please make copy for patient.
--- NOTE | 2017-03-02 16:43 | Anesthesiology Progress Note ---
Anesthesia Post Op Note Date & Time Mar 02, 2017 at 16:43 Vital Signs Pain Intensity: 0 Vital Signs Past 12 Hours Date Time Temp Pulse Resp B/P (MAP) Pulse Ox O2 Delivery O2 Flow Rate FiO2 03/02/17 15:16 36.8 65 18 90/63 (72) 100 Room Air Notes Mental Status: alert / awake / arousable, participated in evaluation Pt Amnestic to Procedure: Yes Nausea / Vomiting: adequately controlled Pain: adequately controlled Airway Patency, RR, SpO2: stable & adequate BP & HR: stable & adequate Hydration State: stable & adequate Anesthetic Complications: no major complications apparent
[2017-03-02 17:10] VITALS: BP 107/58; PULSE 59; O2SAT 100
--- NOTE | 2017-03-03 00:15 | GI REPORT ---
Procedure Date: 03/02/2017 4:02 PM Procedure: Upper GI endoscopy Indications: Gastro-esophageal reflux disease, Nausea with vomiting Medicines: Monitored Anesthesia Care Complications: No immediate complications. Estimated Blood Loss: Estimated blood loss: none. Procedure: Pre-Anesthesia Assessment: - Prior to the procedure, a History and Physical was performed, and patient medications and allergies were reviewed. The patient's tolerance of previous anesthesia was also reviewed. The risks and benefits of the procedure and the sedation options and risks were discussed with the patient. All questions were answered, and informed consent was obtained. Prior Anticoagulants: The patient has taken no previous anticoagulant or antiplatelet agents. ASA Grade Assessment: III - A patient with severe systemic disease. After reviewing the risks and benefits, the patient was deemed in satisfactory condition to undergo the procedure. After obtaining informed consent, the endoscope was passed under direct vision. Throughout the procedure, the patient's blood pressure, pulse, and oxygen saturations were monitored continuously. The scope was introduced through the mouth, and advanced to the second part of duodenum. The upper GI endoscopy was accomplished without difficulty. The patient tolerated the procedure well. Findings: The examined esophagus was normal. Two biopsies were obtained in the middle third of the esophagus with cold forceps for histology. Four biopsies were obtained at the gastroesophageal junction with cold forceps for histology. A small hiatus hernia was present. Localized mild inflammation characterized by erythema was found in the gastric antrum. Biopsies were taken with a cold forceps for histology. The examined duodenum was normal. Impression: - Normal esophagus. - Small hiatus hernia. - Gastritis. Biopsied. - Normal examined duodenum. - Two biopsies were obtained in the middle third of the esophagus. - Four biopsies were obtained at the gastroesophageal junction. Recommendation: - Resume previous diet. - Continue present medications. - Await pathology results. - Return to primary care physician as previously scheduled. Domingo Allen DO 03/02/2017 4:48:50 PM This report has been signed electronically. Note Initiated On: 03/02/2017 4:02 PM I attest to the content of the Intraoperative Record and orders documented therein, exceptions below
== END | disposition home or self-care (01) ==
LOC: C.GI 14:35
PROVIDERS: ATTEND Internal Medicine
DX: K20.9 Esophagitis, unspecified (principal); K29.70 Gastritis, unspecified, without bleeding; K44.9 Diaphragmatic hernia without obstruction or gangrene; J44.9 Chronic obstructive pulmonary disease, unspecified; K21.9 Gastro-esophageal reflux disease without esophagitis; F17.200 Nicotine dependence, unspecified, uncomplicated; Z79.899 Other long term (current) drug therapy

== ENCOUNTER 2017-06-04 19:31 | Emergency (ER) | payer OTHER ==
[~2017-06-04] VITALS: Ht 154.9 cm; Wt 47.4 kg
[~2017-06-04 19:31] MED LIST changes: -LIDOCAINE HCL 2% 2 ML VIAL (20MG/ML) ONE; -MIDAZOLAM HCL 1 MG/ML 2ML VIAL ONE; -PROPOFOL IV EMULSION 10 MG/ML 20 ML VIAL IV ONE; -SODIUM CHLORIDE 0.9% 500ML 500 ML IV ONE
[2017-06-04 19:43] VITALS: Ht 154.9 cm; Wt 47.4 kg
[2017-06-04] MEDS ORDERED: SODIUM CHLORIDE 0.9% 1000ML 1,000 ML IV ONE (20:00)
[2017-06-04] MEDS ORDERED: ACETAMINOPHEN 500 MG TAB PO STA (20:00)
[2017-06-04] MEDS ORDERED: KETOROLAC TROMETHAMINE 15 MG/ML VIAL IV ONE (20:00)
[2017-06-04] MEDS ORDERED: KETOROLAC TROMETHAMINE 30 MG/ML VIAL ONE (20:24)
[2017-06-04 20:42] LABS: URINE APPEARANCE CLEAR (CLEAR); URINE BILIRUBIN NEG (NEG); URINE COLOR YELLOW; URINE NITRITE NEG (NEG); URINE SPECIFIC GRAVITY 1.009 (1.000-1.030); UROBILINOGEN NEG (NEG); ZZUR CULT IF INDIC CLEAN CATCH NO
[2017-06-04 20:43] LABS: BASO % 0.5 %; BASO ABS # 0.05 K/uL (0-0.2); COMPLETE YES; EOS % 0.3 %; HEMATOCRIT 37.8 % (37-47); IG% 0.2 %; LYMPH % 22.3 %; LYMPH ABS # 2.41 K/uL (1.2-3.4); MEAN CELL VOLUME 85.3 fL (80-100); MEAN CORPUSCULAR HEMOGLOBIN 29.1 pg (25-34); MEAN CORPUSCULAR HGB CONC 34.1 g/dl (32-36); NEUT % 68.7 %; PLATELET COUNT 306 K/uL (130-400); RED BLOOD COUNT 4.43 M/uL (4.2-5.4); WHITE BLOOD COUNT 10.82 K/uL (4.8-10.8)
[2017-06-04 20:44] LABS: MANUAL MICROSCOPIC REQUIRED? NO; REVIEW REQ? NO
--- NOTE | 2017-06-04 20:51 | DIAGNOSTIC IMAGING REPORT ---
CHEST 2 VIEWS ROUTINE CLINICAL HISTORY: Cough. Fever. COMPARISON STUDY: 08/10/2016 FINDINGS: The cardiac and mediastinal contours are normal. There is no evidence of focal pulmonary consolidation. There is no evidence of failure. No pleural effusions are visualized.[ IMPRESSION: No active disease in the chest. Electronically signed by: Sourav Weber M.D. 06/04/2017 8:50 PM Dictated Date/Time: 06/04/2017 8:49 PM
[2017-06-04 21:00] LABS: BUN/CREATININE RATIO 9.9 (10-20); CALCIUM 8.9 mg/dl (8.5-10.1); CREATININE 0.99 mg/dl (0.60-1.20); POTASSIUM 3.3 mmol/L (3.5-5.1)
[2017-06-04 21:03] LABS: ALB/GLOB RATIO 0.8 (0.9-2)
[2017-06-04] MEDS ORDERED: AMOXICIL/CLAVU 875MG HOME PACK PO ONE (21:15)
[2017-06-04] MEDS ORDERED: AMOX875T PO (21:15)
[2017-06-04 21:25] VITALS: BP 91/64; PULSE 78; TEMP 36.9; O2SAT 98
--- NOTE | 2017-06-04 23:24 | EMERGENCY ROOM VISIT NOTE ---
History First contact with patient: 19:48 Chief Complaint: ILLNESS Stated Complaint: SOB,TROUBLE URINATING,PAIN IN EARS,CAN'T SWOLLOW History of Present Illness The patient is a 36 year old female who presents to the Emergency Room with complaints of sinus congestion, bilateral ear pain, sore throat, cough, and difficulty swallowing. The patient states that she initially started with some sinus congestion symptoms about 2 weeks ago, and her discomfort has been worsening since that time. She does report intermittent fever at home that will improve with Advil and Tylenol. The patient states her cough is nonproductive. She does have an albuterol inhaler at home, but this does not significantly help her symptoms either. The patient has not had distinct chest pain, abdominal pain, nausea, vomiting, or shortness of breath. She went to an urgent care clinic 4 days ago, and she states a rapid strep was negative. She rates her overall discomfort at 8/10. Review of Systems More than 10 systems were reviewed and otherwise negative with the exception of history of present illness. Past Medical/Surgical History Medical Problems: (1) Asthma (2) Bronchitis (3) section (4) Contusion of right leg (5) COPD (chronic obstructive pulmonary disease) (6) Ear pain (7) Endometriosis (8) Hair follicle infection (9) Headache (10) Leukocytosis (11) Migraine (12) Migraine (13) Migraines (14) Ovarian cyst (15) Ovarian cyst (16) Partial hysterectomy (17) Pharyngitis (18) Pharyngitis (19) Pneumonia (20) Productive cough (21) SOB (shortness of breath) (22) Tubal ligation (23) URI (upper respiratory infection) Surgical Problems: (1) History of right oophorectomy Family History FH: heart disease FHx: pulmonary embolism Social History Smoking Status: Current Every Day Smoker Alcohol Use: none Drug Use: none Marital Status: Housing Status: lives with family Occupation Status: employed Current/Historical Medications Scheduled Amoxicillin & Pot Clavulanate (Augmentin 875-125 mg), 1 TAB PO BID Estradiol (Estrace), 1 MG PO HS Fluticasone Furoate (Inhalatio (Arnuity Ellipta), 1 PUFF INH QAM Ranitidine (Zantac), 150 MG PO BID Topiramate (Topamax), 50 MG PO QAM Topiramate (Topamax), 100 MG PO HS Scheduled PRN Albuterol (Ventolin Hfa), 2 PUFFS INH QID PRN for Shortness of Breath Dicyclomine Hcl (Dicyclomine Hcl), 10 MG PO TID PRN for Abdominal Pain Meclizine Hcl (Meclizine Hcl), 25 MG PO TID PRN for Dizziness or Vertigo Sumatriptan Succinate (Imitrex), 50 MG PO UD PRN for Migraine Physical Exam Vital Signs Date Time Temp Pulse Resp B/P (MAP) Pulse Ox O2 Delivery O2 Flow Rate FiO2 06/04/17 21:25 36.9 78 16 91/64 98 Room Air 06/04/17 19:43 37.8 89 18 105/76 100 Room Air Physical Exam VITALS: Vitals are noted on the nurse's note and reviewed by myself. Vital signs stable. GENERAL: Well-developed, well-nourished, white female, who is in no acute distress and resting comfortably. Patient is cooperative with the examination. HEAD: Normocephalic atraumatic. EARS: External ear normal. External auditory canals clear, tympanic membranes pearly parks without erythema or effusion bilaterally. EYES: Pupils equal round and reactive to light and accommodation. Conjunctivae without injection, sclerae without icterus. Extraocular movements intact. NOSE: Patent, turbinates without inflammation or discharge. MOUTH: Mucous membranes moist. Tonsils are not enlarged. Pharynx is erythematous with mucoid drainage in the posterior pharynx. NECK: Supple without nuchal rigidity. No lymphadenopathy. No thyromegaly. Cervical spine is nontender. HEART: Regular rate and rhythm without murmurs gallops or rubs. LUNGS: Clear to auscultation bilaterally without wheezes, rales or rhonchi. No retractions or accessory muscle use. Medical Decision & Procedures ER Provider Diagnostic Interpretation: CHEST 2 VIEWS ROUTINE CLINICAL HISTORY: Cough. Fever. COMPARISON STUDY: 08/10/2016 FINDINGS: The cardiac and mediastinal contours are normal. There is no evidence of focal pulmonary consolidation. There is no evidence of failure. No pleural effusions are visualized.[ IMPRESSION: No active disease in the chest Laboratory Results 06/04/17 20:15 Red Blood Count 4.43, Mean Corpuscular Volume 85.3, Mean Corpuscular Hemoglobin 29.1, Mean Corpuscular Hemoglobin Concent 34.1, Mean Platelet Volume 10.0, Neutrophils (%) (Auto) 68.7, Lymphocytes (%) (Auto) 22.3, Monocytes (%) (Auto) 8.0, Eosinophils (%) (Auto) 0.3, Basophils (%) (Auto) 0.5, Neutrophils # (Auto) 7.44, Lymphocytes # (Auto) 2.41, Monocytes # (Auto) 0.87, Eosinophils # (Auto) 0.03, Basophils # (Auto) 0.05 06/04/17 20:15 Test 06/04/17 20:15 06/04/17 20:16 White Blood Count 10.82 K/uL (4.8-10.8) Red Blood Count 4.43 M/uL (4.2-5.4) Hemoglobin 12.9 g/dL (12.0-16.0) Hematocrit 37.8 % (37-47) Mean Corpuscular Volume 85.3 fL (80-100) Mean Corpuscular Hemoglobin 29.1 pg (25-34) Mean Corpuscular Hemoglobin Concent 34.1 g/dl (32-36) Platelet Count 306 K/uL (130-400) Mean Platelet Volume 10.0 fL (7.4-10.4) Neutrophils (%) (Auto) 68.7 % Lymphocytes (%) (Auto) 22.3 % Monocytes (%) (Auto) 8.0 % Eosinophils (%) (Auto) 0.3 % Basophils (%) (Auto) 0.5 % Neutrophils # (Auto) 7.44 K/uL (1.4-6.5) Lymphocytes # (Auto) 2.41 K/uL (1.2-3.4) Monocytes # (Auto) 0.87 K/uL (0.11-0.59) Eosinophils # (Auto) 0.03 K/uL (0-0.5) Basophils # (Auto) 0.05 K/uL (0-0.2) RDW Standard Deviation 39.8 fL (36.4-46.3) RDW Coefficient of Variation 12.7 % (11.5-14.5) Immature Granulocyte % (Auto) 0.2 % Immature Granulocyte # (Auto) 0.02 K/uL (0.00-0.02) Anion Gap 9.0 mmol/L (3-11) Est Creatinine Clear Calc Drug Dose 58.8 ml/min Estimated GFR () 85.0 Estimated GFR (Non- 73.3 BUN/Creatinine Ratio 9.9 (10-20) Calcium Level 8.9 mg/dl (8.5-10.1) Total Bilirubin 0.2 mg/dl (0.2-1) Aspartate Amino Transf (AST/SGOT) 16 U/L (15-37) Alanine Aminotransferase (ALT/SGPT) 14 U/L (12-78) Alkaline Phosphatase 64 U/L (45-117) Total Protein 8.1 gm/dl (6.4-8.2) Albumin 3.7 gm/dl (3.4-5.0) Globulin 4.4 gm/dl (2.5-4.0) Albumin/Globulin Ratio 0.8 (0.9-2) Urine Color YELLOW Urine Appearance CLEAR (CLEAR) Urine pH 6.0 (4.5-7.5) Urine Specific [place] 1.009 (1.000-1.030) Urine Protein NEG (NEG) Urine Glucose (UA) NEG (NEG) Urine Ketones NEG (NEG) Urine Occult Blood NEG (NEG) Urine Nitrite NEG (NEG) Urine Bilirubin NEG (NEG) Urine Urobilinogen NEG (NEG) Urine Leukocyte Esterase NEG (NEG) Urine Test NEG (NEG) Medications Administered Medications (Trade) Dose Ordered Sig/Augusto Route Start Time Stop Time Status Last Admin Dose Admin Acetaminophen (Tylenol Tab) 1,000 mg NOW STAT PO 06/04/17 20:00 06/04/17 20:03 DC 06/04/17 20:27 1,000 MG Ketorolac Tromethamine (Toradol Inj) 15 mg NOW ONCE IV 06/04/17 20:00 06/04/17 20:03 DC 06/04/17 20:27 15 MG Sodium Chloride 1,000 ml @ 999 mls/hr Q1H1M ONCE IV 06/04/17 20:00 06/04/17 21:00 DC 06/04/17 20:16 999 MLS/HR Amoxicillin/ Clavulanate Potassium (Augmentin 875MG Home Pack) 1 homepack UD ONCE PO 06/04/17 21:15 06/04/17 21:16 DC 06/04/17 21:27 1 HOMEPACK ED Course Physical exam and history were performed. Nursing notes, EMR, and Medication List were personally reviewed. Patient appears to have URI symptoms that have been ongoing for the past 2 weeks. The patient does report having a fever at home, and evidently had a negative outpatient strep swab. On exam she does have purulent mucoid drainage in the posterior pharynx. IV access was established and labs were obtained. Chest x-ray was performed. The patient was medicated as above. The patient's blood work is as above and was reviewed. She does not have a significantly elevated white blood cell count, gross anemia, bandemia, or significant electrolyte imbalance. Chest x-ray is essentially unremarkable. Overall I suspect the patient has an acute sinus infection as the likely cause of her symptoms today. I will provide the patient a course of antibiotics. She does have an albuterol inhaler that she may continue. She is to use Advil and Tylenol for pain and fever control. She was given additional discharge instructions as below and invited back to the ER with any new, worsening, or concerning symptoms. The chart was completed utilizing [employer] Speech Voice Recognition Software. Grammatical errors, random word insertions, pronoun errors, and incomplete sentences are an occasional consequence of this system due to software limitations, ambient noise, and hardware issues. Any formal questions or concerns about the content, text, or information contained within the body of this dictation should be directly addressed to the provider for clarification. . Medical Decision Differential diagnosis: Etiologies such as infections, reactive airway disease, pneumonia, pneumothorax , COPD, CHF, cardiac ischemia, pulmonary embolism, musculoskeletal, gastrointestinal, as well as others were entertained. Blood Pressure Screening Patient's blood pressure: Normal blood pressure Impression Primary Impression: Acute sinusitis Departure Information Dispostion Home / Self-Care Condition GOOD Prescriptions Amoxicillin & Pot Clavulanate (Augmentin 875-125 mg) 1 Tab Tab 1 TAB PO BID for 9 Days, #18 TAB Prov: Jaren Nelson PA-C 06/04/17 Forms HOME CARE DOCUMENTATION FORM, IMPORTANT VISIT INFORMATION Patient Instructions My [facility] [address] Additional Instructions You were seen and evaluated today on an emergency basis only. This is not a substitute for, or an effort to provide, complete comprehensive medical care. It is not possible to recognize and treat all injuries or illnesses in a single emergency department visit. For this reason it is recommended that you followup with your primary care physician next week for any ongoing or persistent symptoms. For baseline pain relief you may alternate ibuprofen and acetaminophen every 4 hours for pain control. Take 600 mg ibuprofen (Advil) and then 4 hours later take 1000 mg acetaminophen (Tylenol). Do not take more than 3000 mg acetaminophen in a single day. Amoxicillin Clavulanate (Augmentin) 875mg: Take one pill twice daily for 10 total days for your infection. All antibiotics can cause diarrhea. If this occurs and you feel worse or it does not resolve in 1-2 days follow up with your doctor or return to the Emergency Department as this could be signs of serious underlying problems. Any medication can cause an allergic reaction, stop the pills immediately and return to the ER for rash, hives, breathing difficulties, or swelling. You are welcome to return to the emergency department anytime with new, worsening, or concerning symptoms.
== END 2017-06-04 21:36 | disposition home or self-care (01) ==
LOC: C.EDB 19:32 → C.EDC 21:36
DX: J01.90 Acute sinusitis, unspecified (principal); J45.909 Unspecified asthma, uncomplicated; J44.9 Chronic obstructive pulmonary disease, unspecified; F17.200 Nicotine dependence, unspecified, uncomplicated

== ENCOUNTER 2017-08-06 17:31 | Observation (INO) | payer OTHER ==
[~2017-08-06] VITALS: Ht 154.9 cm; Wt 49.6 kg
[2017-08-06] MEDS ORDERED: MoRPHine SULFATE 4 MG/ML 1 ML CARP\\VIAL IV STA (18:39)
[2017-08-06] MEDS ORDERED: ONDANSETRON INJ 2 MG/ML 2 ML VIAL IV STA ×2 (18:39→20:13)
[2017-08-06] MEDS ORDERED: SUMA100T16 PO (19:14)
[2017-08-06 19:18] LABS: BASO % 1.3 %; BASO ABS # 0.08 K/uL (0-0.2); EOS % 0.7 %; EOS ABS # 0.04 K/uL (0-0.5); IG# 0.01 K/uL (0.00-0.02); LYMPH % 38.3 %; LYMPH ABS # 2.32 K/uL (1.2-3.4); MEAN CELL VOLUME 86.6 fL (80-100); MEAN CORPUSCULAR HEMOGLOBIN 29.6 pg (25-34); MEAN CORPUSCULAR HGB CONC 34.2 g/dl (32-36); MEAN PLATELET VOLUME 9.9 fL (7.4-10.4); MONO % 5.8 %; MONO ABS # 0.35 K/uL (0.11-0.59); NEUT % 53.7 %; NEUT ABS # 3.26 K/uL (1.4-6.5); PLATELET COUNT 280 K/uL (130-400); RED CELL DISTRIBUTION WIDTH CV 13.2 % (11.5-14.5); RED CELL DISTRIBUTION WIDTH SD 42.4 fL (36.4-46.3); WHITE BLOOD COUNT 6.06 K/uL (4.8-10.8)
[2017-08-06 19:42] LABS: ALBUMIN 4.2 gm/dl (3.4-5.0); CALCIUM 8.8 mg/dl (8.5-10.1); CREATININE 0.89 mg/dl (0.60-1.20); POTASSIUM 3.6 mmol/L (3.5-5.1); TOTAL PROTEIN 8.1 gm/dl (6.4-8.2)
[2017-08-06 19:43] LABS: INFLUENZA B ANTIGEN Neg for Influ B (NEG)
[2017-08-06] MEDS ORDERED: OPTIRAY 320 IV PRN (21:00)
[2017-08-06] MEDS ORDERED: FENTANYL CITRATE INJ 50 MCG/1 ML 2 ML VIAL IV STA (21:27)
--- NOTE | 2017-08-06 21:57 | DIAGNOSTIC IMAGING REPORT ---
ABDOMEN AND PELVIS CT WITH IV AND ORAL CONTRAST CT DOSE: 243.50 mGy.cm HISTORY: Acute right lower quadrant abdominal pain RLQ abdominal pain TECHNIQUE: Multiaxial CT images of the abdomen and pelvis were performed following the use of intravenous and oral contrast. A dose lowering technique was utilized adhering to the principles of ALARA. COMPARISON STUDY: CT abdomen and pelvis 11/25/2015 FINDINGS: Lung bases are generally clear. No pneumatosis or pneumoperitoneum identified. Imaged inferior cardiac chambers are unremarkable. Minimal periportal edema, likely related to hydration status. The liver, gallbladder, spleen, pancreas and adrenal glands are within normal limits. Kidneys, ureters and urinary bladder are within normal limits. Uterus appears to be surgically absent. No adnexal mass lesions identified. Aorta is normal in both course and caliber. No bulky adenopathy. There is no bowel obstruction. There is contrast opacification of the cecum, ascending and transverse colon. The appendix however is not opacified with contrast and measures the upper limits of normal at 7 mm as seen on image 295 series 3. No associated perinephric inflammatory stranding. Soft tissues are unremarkable. The bones appear to be intact. IMPRESSION: 1. The appendix measures within the upper limits of normal at 7 mm and is not opacified with oral contrast. Although there are no periappendiceal inflammatory changes identified, these findings could reflect very early acute appendicitis within the appropriate clinical setting. Close follow-up is recommended. 2. No bowel junction. 3. No renal calculi or obstructive uropathy. Electronically signed by: Mathew Jones M.D. 08/06/2017 9:56 PM Dictated Date/Time: 08/06/2017 9:50 PM
--- NOTE | 2017-08-06 23:13 | Surgery Consultation ---
Consultation Date of Consultation: Aug 06, 2017. Attending Physician: Reason for Consultation: appendicitis History of Present Illness Patient is a 36F who presents to the ED tonight with a 1 week history of RLQ abdominal pain, nausea and intermittent fevers. States her pain has gotten worse throughout the week and that it sometimes wraps around to her lower back. She has tried taking tylenol and ibuprofen for her symptoms without relief. She denies any episodes of vomiting. She has been moving her bowels and urinating without trouble. She last ate around 1100 today. PSHx significant for KENA-SBO and x 2. Denies FHx of appendicitis. At this time her pain is controlled, she is afebrile and denies any N/V. She did receive zofran and pain medication in the ED tonight. WBC 6.06. CT abd/pelvis w/ oral and IV contrast shows the appendix measuring 7mm and is not opacified with oral contrast, no periappendiceal inflammation, findings could reflect early acute appendicitis. Past Medical/Surgical History Medical Problems: (1) Acute maxillary sinusitis Status: Acute (2) Acute sinusitis Status: Acute (3) Hypokalemia Status: Acute (4) Left flank pain Status: Acute (5) Left knee sprain Status: Acute (6) Paresthesias Status: Acute Family History FH: heart disease FHx: pulmonary embolism Social History Smoking Status: Current Every Day Smoker Drug Use: none Marital Status: Housing Status: lives with family Occupation Status: employed Allergies Coded Allergies: No Known Allergies (Verified , 06/04/17) Home Medications Scheduled Dicyclomine Hcl (Dicyclomine Hcl), 20 MG PO TID Estradiol (Estrace), 1 MG PO HS Fluticasone Furoate (Inhalatio (Arnuity Ellipta), 1 PUFF INH QAM Ranitidine (Zantac), 150 MG PO BID Sumatriptan Succinate (Imitrex), 100 MG PO PRN Topiramate (Topamax), 50 MG PO QAM Topiramate (Topamax), 100 MG PO HS Scheduled PRN Albuterol (Ventolin Hfa), 2 PUFFS INH QID PRN for Shortness of Breath Meclizine Hcl (Meclizine Hcl), 25 MG PO TID PRN for Dizziness or Vertigo Current Inpatient Medications Current Inpatient Medications Medications (Trade) Dose Ordered Sig/Augusto Route Start Time Stop Time Status Last Admin Dose Admin Ioversol (Optiray 320) 100 ml UD PRN IV 08/06/17 21:00 08/10/17 20:59 Review of Systems Constitutional: + fever, No chills Respiratory: No shortness of breath Cardiovascular: No chest pain Abdomen: + pain (RLQ), + nausea, No vomiting, No diarrhea, No constipation Genitourinary - Female: No dysuria, No hematuria Integumentary: No color change Physical Exam Date Time Temp Pulse Resp B/P (MAP) Pulse Ox O2 Delivery O2 Flow Rate FiO2 08/06/17 22:11 73 21 99 Room Air 08/06/17 22:01 91/64 08/06/17 21:56 64 15 97 08/06/17 21:41 72 16 98 08/06/17 21:31 100/66 08/06/17 21:26 67 15 98 08/06/17 21:25 105/76 08/06/17 21:01 94/63 08/06/17 20:56 59 18 98 08/06/17 20:51 60 21 99 Room Air 08/06/17 20:36 56 15 100 08/06/17 20:35 108/59 08/06/17 20:21 57 19 100 08/06/17 20:06 65 18 100 08/06/17 20:01 97/66 08/06/17 19:51 65 20 99 08/06/17 19:46 72 18 98 08/06/17 19:31 67 24 102/65 100 08/06/17 19:16 62 21 99 08/06/17 19:01 60 16 121/75 100 Room Air 08/06/17 18:58 130/63 08/06/17 17:40 36.9 85 16 129/90 99 Room Air Patient laying up in bed with her at bedside. General Appearance: WD/WN, no apparent distress Head: normocephalic, atraumatic ENT: hearing grossly normal Neck: trachea midline Respiratory/Chest: no respiratory distress, no accessory muscle use Abdomen/GI: normal bowel sounds, soft, no organomegaly, no pulsatile mass, + tenderness (RLQ TTP) Neurologic/Psych: alert, normal mood/affect, oriented x 3 Skin: normal color, warm/dry Laboratory Results Last 24 Hours Test 08/06/17 18:55 08/06/17 19:05 Influenza Type A Antigen Neg for Influ A Influenza Type B Antigen Neg for Influ B White Blood Count 6.06 K/uL Red Blood Count 4.39 M/uL Hemoglobin 13.0 g/dL Hematocrit 38.0 % Mean Corpuscular Volume 86.6 fL Mean Corpuscular Hemoglobin 29.6 pg Mean Corpuscular Hemoglobin Concent 34.2 g/dl Platelet Count 280 K/uL Mean Platelet Volume 9.9 fL Neutrophils (%) (Auto) 53.7 % Lymphocytes (%) (Auto) 38.3 % Monocytes (%) (Auto) 5.8 % Eosinophils (%) (Auto) 0.7 % Basophils (%) (Auto) 1.3 % Neutrophils # (Auto) 3.26 K/uL Lymphocytes # (Auto) 2.32 K/uL Monocytes # (Auto) 0.35 K/uL Eosinophils # (Auto) 0.04 K/uL Basophils # (Auto) 0.08 K/uL RDW Standard Deviation 42.4 fL RDW Coefficient of Variation 13.2 % Immature Granulocyte % (Auto) 0.2 % Immature Granulocyte # (Auto) 0.01 K/uL Urine Color YELLOW Urine Appearance TURBID Urine pH 8.0 Urine Specific [place] 1.016 Urine Protein NEG Urine Glucose (UA) NEG Urine Ketones NEG Urine Occult Blood NEG Urine Nitrite NEG Urine Bilirubin NEG Urine Urobilinogen NEG Urine Leukocyte Esterase NEG Urine WBC (Auto) 1-5 /hpf Urine RBC (Auto) 0-4 /hpf Urine Hyaline Casts (Auto) 1-5 /lpf Urine Epithelial Cells (Auto) 20-30 /lpf Urine Bacteria (Auto) NEG Urine Test NEG Sodium Level 141 mmol/L Potassium Level 3.6 mmol/L Chloride Level 114 mmol/L Carbon Dioxide Level 23 mmol/L Anion Gap 4.0 mmol/L Blood Urea Nitrogen 11 mg/dl Creatinine 0.89 mg/dl Est Creatinine Clear Calc Drug Dose 65.9 ml/min Estimated GFR () 96.6 Estimated GFR (Non- 83.4 BUN/Creatinine Ratio 12.3 Random Glucose 92 mg/dl Calcium Level 8.8 mg/dl Magnesium Level 2.3 mg/dl Total Bilirubin 0.2 mg/dl Aspartate Amino Transf (AST/SGOT) 22 U/L Alanine Aminotransferase (ALT/SGPT) 22 U/L Alkaline Phosphatase 56 U/L Total Protein 8.1 gm/dl Albumin 4.2 gm/dl Globulin 3.9 gm/dl Albumin/Globulin Ratio 1.1 Chemistry Specimen Hemolysis Assessment & Plan RLQ abdominal pain, nausea, fevers and CT findings suggesting early acute appendicitis. Pain controlled, No N/V at this time, afebrile, WBC 6.06. Will keep tonight and plan for laparoscopic appendectomy possible open with Dr. Tee in the AM. Admit (obs) med/surg, NPO after midnight, IV fluids, IV cefoxitin 2g q6h, IV pain medication PRN, IV Zofran PRN for nausea, CHRIS stockings, OOB as tolerated. Repeat labs in AM, OR notified. Findings discussed with Dr. Tee. Please contact with questions or concerns.
[2017-08-06] MEDS ORDERED: ONDANSETRON INJ 2 MG/ML 2 ML VIAL IV PRN (23:15)
[2017-08-06] MEDS ORDERED: MoRPHine SULFATE 2 MG/ML CARP IV PRN (23:15)
[2017-08-06] MEDS ORDERED: MoRPHine SULFATE 4 MG/ML 1 ML CARP\\VIAL IV PRN (23:15)
--- NOTE | 2017-08-06 23:26 | EMERGENCY ROOM VISIT NOTE ---
History First contact with patient: 18:30 Chief Complaint: ABDOMINAL PAIN Stated Complaint: PAIN IN STOMACH, RT SIDE, FEVER, NAUSEA- REFERRED Nursing Triage Summary: lower abd pain for 1 week History of Present Illness The patient is a 36 year old female who presents to the Emergency Room via private vehicle accompanied by male with complaints of "pain in stomach, right side, fever, nauseareferred". The patient states that she began with mild right lower quadrant abdominal pain earlier this week. There has been associated fever, chills and nausea. The pain has worsened. She does have a previous history of 2 C-sections and 2 partial hysterectomy is resulting in a complete removal of her ovaries and uterus. She states that she has been using both Tylenol and ibuprofen without relief. There are no alleviating factors. She states that her last documented fever was this morning at 101.9 orally. She also notes upper respiratory tract symptoms 2. She denies any vomiting. There has chronic diarrhea. She denies any vaginal bleeding, discharge or dysuria. Review of Systems A complete 10-point Review of Systems was discussed with the patient, with pertinent positives and negatives listed in the History of Present Illness. All remaining Review of Systems questions can be considered negative unless otherwise specified. Past Medical/Surgical History Medical Problems: (1) Acute appendicitis (2) Asthma (3) Bronchitis (4) section (5) Contusion of right leg (6) COPD (chronic obstructive pulmonary disease) (7) Ear pain (8) Endometriosis (9) Hair follicle infection (10) Headache (11) Leukocytosis (12) Migraine (13) Migraine (14) Migraines (15) Ovarian cyst (16) Ovarian cyst (17) Partial hysterectomy (18) Pharyngitis (19) Pharyngitis (20) Pneumonia (21) Productive cough (22) SOB (shortness of breath) (23) Tubal ligation (24) URI (upper respiratory infection) Surgical Problems: (1) History of right oophorectomy Family History FH: heart disease FHx: pulmonary embolism Social History Smoking Status: Current Every Day Smoker Alcohol Use: none Drug Use: none Marital Status: Housing Status: lives with family Occupation Status: employed Current/Historical Medications Scheduled Dicyclomine Hcl (Dicyclomine Hcl), 20 MG PO TID Estradiol (Estrace), 1 MG PO HS Fluticasone Furoate (Inhalatio (Arnuity Ellipta), 1 PUFF INH QAM Ranitidine (Zantac), 150 MG PO BID Sumatriptan Succinate (Imitrex), 100 MG PO PRN Topiramate (Topamax), 50 MG PO QAM Topiramate (Topamax), 100 MG PO HS Scheduled PRN Albuterol (Ventolin Hfa), 2 PUFFS INH QID PRN for Shortness of Breath Meclizine Hcl (Meclizine Hcl), 25 MG PO TID PRN for Dizziness or Vertigo Allergies Coded Allergies: No Known Allergies (Verified , 06/04/17) Physical Exam Vital Signs Date Time Temp Pulse Resp B/P (MAP) Pulse Ox O2 Delivery O2 Flow Rate FiO2 08/06/17 22:46 70 18 100 08/06/17 22:31 71 19 92/65 100 08/06/17 22:11 73 21 99 Room Air 08/06/17 22:01 91/64 08/06/17 21:56 64 15 97 08/06/17 21:41 72 16 98 08/06/17 21:31 100/66 08/06/17 21:26 67 15 98 08/06/17 21:25 105/76 08/06/17 21:01 94/63 08/06/17 20:56 59 18 98 08/06/17 20:51 60 21 99 Room Air 08/06/17 20:36 56 15 100 08/06/17 20:35 108/59 08/06/17 20:21 57 19 100 08/06/17 20:06 65 18 100 08/06/17 20:01 97/66 08/06/17 19:51 65 20 99 08/06/17 19:46 72 18 98 08/06/17 19:31 67 24 102/65 100 08/06/17 19:16 62 21 99 08/06/17 19:01 60 16 121/75 100 Room Air 08/06/17 18:58 130/63 08/06/17 17:40 36.9 85 16 129/90 99 Room Air Physical Exam VITAL SIGNS - Vital signs and nursing notes were reviewed. Stable. Afebrile. GENERAL -36-year-old female appearing her stated age who is in no acute distress. Communicates well with provider and answers questions appropriately. SKIN - Without rashes. No petechial rashes. HEAD - NC/AT. EYES - Sclera anicteric. NOSE - Midline and without cyanosis. No epistaxis or purulent drainage noted. MOUTH/OROPHARYNX - Without perioral cyanosis. LUNGS - Chest wall symmetric without accessory muscle use, intercostals retractions, or central cyanosis. Normal vesicular breath sounds CTA B/L. No wheezes, rales, or rhonchi appreciated. CARDIAC - RRR with S1/S2. No murmur, rubs, or gallops appreciated. ABDOMEN - Abdominal contour normal without pulsations or visible masses. BS normoactive all four quadrants. No palpable masses, hepatosplenomegaly, or ascites noted. There is RLQ abd tenderness. Medical Decision & Procedures ER Provider Diagnostic Interpretation: ABDOMEN AND PELVIS CT WITH IV AND ORAL CONTRAST CT DOSE: 243.50 mGy.cm HISTORY: Acute right lower quadrant abdominal pain RLQ abdominal pain TECHNIQUE: Multiaxial CT images of the abdomen and pelvis were performed following the use of intravenous and oral contrast. A dose lowering technique was utilized adhering to the principles of ALARA. COMPARISON STUDY: CT abdomen and pelvis 11/25/2015 FINDINGS: Lung bases are generally clear. No pneumatosis or pneumoperitoneum identified. Imaged inferior cardiac chambers are unremarkable. Minimal periportal edema, likely related to hydration status. The liver, gallbladder, spleen, pancreas and adrenal glands are within normal limits. Kidneys, ureters and urinary bladder are within normal limits. Uterus appears to be surgically absent. No adnexal mass lesions identified. Aorta is normal in both course and caliber. No bulky adenopathy. There is no bowel obstruction. There is contrast opacification of the cecum, ascending and transverse colon. The appendix however is not opacified with contrast and measures the upper limits of normal at 7 mm as seen on image 295 series 3. No associated perinephric inflammatory stranding. Soft tissues are unremarkable. The bones appear to be intact. IMPRESSION: 1. The appendix measures within the upper limits of normal at 7 mm and is not opacified with oral contrast. Although there are no periappendiceal inflammatory changes identified, these findings could reflect very early acute appendicitis within the appropriate clinical setting. Close follow-up is recommended. 2. No bowel junction. 3. No renal calculi or obstructive uropathy. Electronically signed by: Mathew Jones M.D. 08/06/2017 9:56 PM Dictated Date/Time: 08/06/2017 9:50 PM Laboratory Results 08/06/17 19:05 Red Blood Count 4.39, Mean Corpuscular Volume 86.6, Mean Corpuscular Hemoglobin 29.6, Mean Corpuscular Hemoglobin Concent 34.2, Mean Platelet Volume 9.9, Neutrophils (%) (Auto) 53.7, Lymphocytes (%) (Auto) 38.3, Monocytes (%) (Auto) 5.8, Eosinophils (%) (Auto) 0.7, Basophils (%) (Auto) 1.3, Neutrophils # (Auto) 3.26, Lymphocytes # (Auto) 2.32, Monocytes # (Auto) 0.35, Eosinophils # (Auto) 0.04, Basophils # (Auto) 0.08 08/06/17 19:05 Test 08/06/17 18:55 08/06/17 19:05 Influenza Type A Antigen Neg for Influ A (NEG) Influenza Type B Antigen Neg for Influ B (NEG) White Blood Count 6.06 K/uL (4.8-10.8) Red Blood Count 4.39 M/uL (4.2-5.4) Hemoglobin 13.0 g/dL (12.0-16.0) Hematocrit 38.0 % (37-47) Mean Corpuscular Volume 86.6 fL (80-100) Mean Corpuscular Hemoglobin 29.6 pg (25-34) Mean Corpuscular Hemoglobin Concent 34.2 g/dl (32-36) Platelet Count 280 K/uL (130-400) Mean Platelet Volume 9.9 fL (7.4-10.4) Neutrophils (%) (Auto) 53.7 % Lymphocytes (%) (Auto) 38.3 % Monocytes (%) (Auto) 5.8 % Eosinophils (%) (Auto) 0.7 % Basophils (%) (Auto) 1.3 % Neutrophils # (Auto) 3.26 K/uL (1.4-6.5) Lymphocytes # (Auto) 2.32 K/uL (1.2-3.4) Monocytes # (Auto) 0.35 K/uL (0.11-0.59) Eosinophils # (Auto) 0.04 K/uL (0-0.5) Basophils # (Auto) 0.08 K/uL (0-0.2) RDW Standard Deviation 42.4 fL (36.4-46.3) RDW Coefficient of Variation 13.2 % (11.5-14.5) Immature Granulocyte % (Auto) 0.2 % Immature Granulocyte # (Auto) 0.01 K/uL (0.00-0.02) Urine Color YELLOW Urine Appearance TURBID (CLEAR) Urine pH 8.0 (4.5-7.5) Urine Specific [place] 1.016 (1.000-1.030) Urine Protein NEG (NEG) Urine Glucose (UA) NEG (NEG) Urine Ketones NEG (NEG) Urine Occult Blood NEG (NEG) Urine Nitrite NEG (NEG) Urine Bilirubin NEG (NEG) Urine Urobilinogen NEG (NEG) Urine Leukocyte Esterase NEG (NEG) Urine WBC (Auto) 1-5 /hpf (0-5) Urine RBC (Auto) 0-4 /hpf (0-4) Urine Hyaline Casts (Auto) 1-5 /lpf (0-5) Urine Epithelial Cells (Auto) 20-30 /lpf (0-5) Urine Bacteria (Auto) NEG (NEG) Urine Test NEG (NEG) Anion Gap 4.0 mmol/L (3-11) Est Creatinine Clear Calc Drug Dose 65.9 ml/min Estimated GFR () 96.6 Estimated GFR (Non- 83.4 BUN/Creatinine Ratio 12.3 (10-20) Calcium Level 8.8 mg/dl (8.5-10.1) Magnesium Level 2.3 mg/dl (1.8-2.4) Total Bilirubin 0.2 mg/dl (0.2-1) Aspartate Amino Transf (AST/SGOT) 22 U/L (15-37) Alanine Aminotransferase (ALT/SGPT) 22 U/L (12-78) Alkaline Phosphatase 56 U/L (45-117) Total Protein 8.1 gm/dl (6.4-8.2) Albumin 4.2 gm/dl (3.4-5.0) Globulin 3.9 gm/dl (2.5-4.0) Albumin/Globulin Ratio 1.1 (0.9-2) Chemistry Specimen Hemolysis Medications Administered Medications (Trade) Dose Ordered Sig/Augusto Route Start Time Stop Time Status Last Admin Dose Admin Morphine Sulfate (MoRPHine SULFATE INJ) 4 mg NOW STAT IV 08/06/17 18:39 08/06/17 18:42 DC 08/06/17 19:21 4 MG Ondansetron HCl (Zofran Inj) 4 mg NOW STAT IV 08/06/17 18:39 08/06/17 18:42 DC 08/06/17 19:18 4 MG Ondansetron HCl (Zofran Inj) 4 mg NOW STAT IV 08/06/17 20:13 08/06/17 20:14 DC 08/06/17 20:30 4 MG Fentanyl Citrate (Fentanyl Inj) 50 mcg NOW STAT IV 08/06/17 21:27 08/06/17 21:28 DC 08/06/17 21:42 50 MCG Medical Decision Patient was seen and evaluated as above. She presents to us today with right lower quadrant abdominal pain. She is nontoxic on exam. Examination is concerning for that of acute appendicitis. In regard to pelvic etiology, she no longer has her ovaries or uterus. There has been no vaginal discharge or dysuria. I suspect likely intra-abdominal in etiology. Vital signs are stable. She is hemodynamically stable. CBC reveals no leukocytosis or anemia. Metabolic panel reveals chloride cell count at 114, otherwise normal. Urine reveals epithelial cells and high pH other was negative. Urine test negative. Flu negative. Benefits versus risk of obtaining CT scan was discussed, and the decision was made to scan. A CT scan of the abdomen and pelvis with the use of intravenous and oral contrast was utilized. This reveals concerning very early acute appendicitis. Case was discussed with the on-call general surgical physician clothing sales assistant, Stepan Mcneil. He came to evaluate the patient. The patient will be admitted for observation with potential surgical extraction of her appendix tomorrow. Please refer to further documentation regarding her stay. While here she was given fluids, as well as morphine and then fentanyl for pain and Zofran for nausea. The choice to give her fentanyl was after her blood pressure was found to be low which I believe is likely her baseline. In the evaluation and treatment of this patient following differential diagnoses were entertained: Acute appendicitis, bowel obstruction, renal calculi , pyelonephritis, among others. Impression Primary Impression: Acute appendicitis Departure Information Referrals Melo Antonio M.D. (MEDICAL) (PCP) Patient Instructions My [facility]
[2017-08-07] VITALS (10 sets, daily range): BP systolic 89–110; BP diastolic 57–71; PULSE 51–69; TEMP 36.4–37.1; O2SAT 96–100; Ht 154.9 cm; Wt 49.6 kg
[2017-08-07] MEDS ORDERED: SODIUM CHLORIDE 0.9% 1000ML 1,000 ML IV SCH (02:00)
[2017-08-07] MEDS ORDERED: IV FLUIDS COMPLETED PRN (02:00)
[2017-08-07] MEDS: CEFOXITIN IV 2,000 MG in DEXTROSE 5% 50ML 50 ML IV SCH ×2 (02:47→05:46)
--- NOTE | 2017-08-07 03:31 | History & Physical Bridge Note ---
H&P Re-Evaluation Bridge Note: I have examined the patient, reviewed the History & Physical and in the interval since the performance of the History & Physical I have noted the following changes of clinical significance: No changes noted still has non loc pain right lower quadrant at McBurney's point extending to lat above ant iliac crest, no dysuria ct scan noted lab noted will plan lap appy this AM r and c explained to pt
[2017-08-07] MEDS ORDERED: LIDOCAINE HCL 2% 2 ML VIAL (20MG/ML) ONE (05:12)
[2017-08-07] MEDS ORDERED: PROPOFOL IV EMULSION 10 MG/ML 20 ML VIAL IV ONE (05:12)
[2017-08-07] MEDS ORDERED: FENTANYL CITRATE INJ 50 MCG/1 ML 2 ML VIAL ONE ×2 (05:12→06:26)
[2017-08-07] MEDS ORDERED: ONDANSETRON INJ 2 MG/ML 2 ML VIAL ONE (05:20)
[2017-08-07] MEDS ORDERED: ATROPINE SULFATE 0.1 MG/ML 5ML SYR IV PRN (05:30)
[2017-08-07] MEDS ORDERED: EpHEDrine SULFATE INJ 50 MG/ML AMP IV PRN (05:30)
[2017-08-07] MEDS ORDERED: ONDANSETRON INJ 2 MG/ML 2 ML VIAL IV PRN (05:30)
[2017-08-07] MEDS ORDERED: FENTANYL CITRATE INJ 50 MCG/1 ML 2 ML VIAL IV PRN (05:30)
[2017-08-07 05:32] LABS: BASO % 0.7 %; BASO ABS # 0.05 K/uL (0-0.2); EOS % 2.5 %; EOS ABS # 0.17 K/uL (0-0.5); HEMATOCRIT 36.9 % (37-47); HEMOGLOBIN 12.3 g/dL (12.0-16.0); IG# 0.01 K/uL (0.00-0.02); LYMPH % 44.2 %; LYMPH ABS # 3.02 K/uL (1.2-3.4); MEAN CELL VOLUME 87.2 fL (80-100); MEAN CORPUSCULAR HEMOGLOBIN 29.1 pg (25-34); MEAN CORPUSCULAR HGB CONC 33.3 g/dl (32-36); MEAN PLATELET VOLUME 9.7 fL (7.4-10.4); MONO % 7.3 %; NEUT % 45.2 %; NEUT ABS # 3.08 K/uL (1.4-6.5); PLATELET COUNT 249 K/uL (130-400); RED CELL DISTRIBUTION WIDTH CV 13.3 % (11.5-14.5); RED CELL DISTRIBUTION WIDTH SD 42.8 fL (36.4-46.3); WHITE BLOOD COUNT 6.83 K/uL (4.8-10.8)
[2017-08-07] MEDS ORDERED: LIDOCAINE/EPINEPHRINE 1% 20 ML VIAL ONE (05:41)
[2017-08-07] MEDS ORDERED: SCOPOLAMINE 1.5 MG TDSY TD ONE (05:42)
[2017-08-07 06:01] LABS: CALCIUM 8.1 mg/dl (8.5-10.1); CREATININE 1.08 mg/dl (0.60-1.20); POTASSIUM 3.4 mmol/L (3.5-5.1)
[2017-08-07] MEDS ORDERED: NEOSTIGMINE METHYLSULFATE 5 MG/5 ML SYR ONE (06:17)
[2017-08-07] MEDS ORDERED: GLYCOPYRROLATE INJ 0.2 MG/ML VIAL ONE (06:17)
[2017-08-07] MEDS ORDERED: ROCURONIUM BROMIDE 10 MG/ML 5 ML VIAL IV ONE (06:17)
--- NOTE | 2017-08-07 06:44 | [facility] Post Operative Brief Note ---
Immediate Operative Summary Operative Date Aug 07, 2017. Pre-Operative Diagnosis Acute Appendicitis Post-Operative Diagnosis Acute Appendicitis Procedure(s) Performed Laparoscopic Appendectomy Surgeon Dr. Tai Tee Sliver Lapper Surgeon(s) Stepan Millan PA-c Estimated Blood Loss 5 ML Findings See Below Mir's membrane no gross evidence of appendicitis Specimens Permanent Specimen A: Appendix Anesthesia Type General
[2017-08-07] MEDS ORDERED: OXYC-57 PO (07:11)
--- NOTE | 2017-08-07 07:11 | Discharge Instructions ---
Discharge Instructions Date of Service Aug 07, 2017. Admission Reason for Admission: Acute Appendicitis Discharge Discharge Diagnosis / Problem: acute appendicitis Discharge Goals Goal(s): Decrease discomfort, Improve function Activity Recommendations Activity Limitations: as noted below Lifting Limitations: no more than 10 pounds, until after follow-up appointment Exercise/Sports Limitations: until after follow-up appointment Shower/Bathe: tomorrow (Please do not submerge incision sites in water) Driving or Machine Use: resume 3 days after discharge (Please do not drive while using narcotic pain medication.) . Instructions / Follow-Up Instructions / Follow-Up You have steri-strips covering your incisions. Please allow these to fall off on their own. You have been given Percocet to take as needed for pain relief. You may alternate this with Ibuprofen for better pain relief as well. Please follow-up with Dr. Tee in 1-2 weeks. Please contact our office at to schedule an appointment if you have not done so already. Please contact our office with any further questions or concerns. [facility]. [address] [facility] [address] [facility] [place] [address] Current Hospital Diet Patient's current hospital diet: Clear Liquid Diet Discharge Diet Recommended Diet: Regular Diet Procedures Procedures Performed: Laparoscopic Appendectomy Pending Studies Studies pending at discharge: yes List of pending studies: pathology Medical Emergencies . Who to Call and When: Medical Emergencies: If at any time you feel your situation is an emergency, please call 911 immediately. . Non-Emergent Contact Non-Emergency issues call your: Primary Care Provider, Surgeon Call Non-Emergent contact if: you have a fever, temperature is above 101.5, your pain is not controlled, your pain is worsening, wound has increased drainage, wound has increased redness, you have any medication questions . "Provider Documentation" section prepared by Stepan Mcneil. . VTE Core Measure Inpt VTE Proph given/why not?: Linda Pedraza, SCD's [place] Drug Monitoring Program Search Results: patient reviewed within database, no issues identified
[2017-08-07] MEDS ORDERED: MoRPHine SULFATE 4 MG/ML 1 ML CARP\\VIAL IV PRN (07:15)
[2017-08-07] MEDS ORDERED: MoRPHine SULFATE 10 MG/ML CARP/VIAL IV PRN (07:15)
[2017-08-07] MEDS ORDERED: MECLIZINE HCL 12.5 MG TAB PO PRN (07:15)
[2017-08-07] MEDS ORDERED: ACETAMINOPHEN 325 MG TAB PO PRN (07:15)
[2017-08-07] MEDS ORDERED: OXYCODONE/ACETAMINOPHEN 5-325 TAB PO PRN ×2 (07:15)
[2017-08-07] MEDS ORDERED: ALBUTEROL HFA 8 GM INHALER INH PRN (07:15)
--- NOTE | 2017-08-07 07:32 | Anesthesiology Progress Note ---
Anesthesia Post Op Note Date & Time Aug 07, 2017 at 07:31 Vital Signs Vital Signs Past 12 Hours Date Time Temp Pulse Resp B/P (MAP) Pulse Ox O2 Delivery O2 Flow Rate FiO2 08/07/17 07:26 36.4 52 15 105/70 100 Room Air 08/07/17 07:21 36.5 55 12 110/68 100 Room Air 08/07/17 07:16 36.5 55 19 115/84 100 Room Air 08/07/17 07:10 36.5 82 14 90/69 100 Nasal Cannula 2 08/07/17 07:04 36.6 51 13 99/61 100 Nasal Cannula 2 08/07/17 05:20 37.1 51 14 97/61 (73) 100 Room Air 08/07/17 03:02 99 Room Air 08/07/17 01:45 36.4 51 14 97/63 (74) 99 Room Air 08/07/17 01:41 36.4 51 14 97/63 96 Room Air 08/07/17 01:16 62 13 97 08/07/17 01:13 89/59 08/07/17 01:06 64 13 96 08/07/17 01:01 81/55 08/07/17 00:51 64 15 97 08/07/17 00:36 67 13 96 08/07/17 00:31 99/58 08/07/17 00:21 66 23 97 08/07/17 00:06 77 26 98 08/07/17 00:01 82/52 08/06/17 23:36 70 20 98 08/06/17 23:31 101/55 08/06/17 23:21 64 19 99 Room Air 08/06/17 23:06 63 17 99 08/06/17 23:01 95/61 08/06/17 22:51 71 18 100 08/06/17 22:46 70 18 100 08/06/17 22:31 71 19 92/65 100 08/06/17 22:11 73 21 99 Room Air 08/06/17 22:01 91/64 08/06/17 21:56 64 15 97 08/06/17 21:41 72 16 98 08/06/17 21:31 100/66 08/06/17 21:26 67 15 98 08/06/17 21:25 105/76 08/06/17 21:01 94/63 08/06/17 20:56 59 18 98 08/06/17 20:51 60 21 99 Room Air 08/06/17 20:36 56 15 100 08/06/17 20:35 108/59 08/06/17 20:21 57 19 100 08/06/17 20:06 65 18 100 08/06/17 20:01 97/66 08/06/17 19:51 65 20 99 08/06/17 19:46 72 18 98 Notes Mental Status: alert / awake / arousable, participated in evaluation Pt Amnestic to Procedure: Yes Nausea / Vomiting: adequately controlled Pain: adequately controlled Airway Patency, RR, SpO2: stable & adequate BP & HR: stable & adequate Hydration State: stable & adequate Anesthetic Complications: no major complications apparent
--- NOTE | 2017-08-07 07:47 | OPERATIVE REPORT ---
DATE OF OPERATION: 08/07/2017 SURGEON: Tai Tee MD. RESERVOIR ENGINEERING CONSULTANT: Stepan Millan PA-C. PREOPERATIVE DIAGNOSIS: Chronic right lower quadrant pain, possible acute appendicitis. POSTOPERATIVE DIAGNOSIS: Same. PROCEDURE: Laparoscopic appendectomy. SUMMARY: This is a 36-year-old female that has had right lower quadrant pain for a number of years. Her most accentuated and that seen in the ER multiple times, all workup was negative. She came in last night where the pain was pretty much localized in the right lower quadrant. She had a normal white count and the CAT scan showed possibility of an early appendicitis. We took her to surgery. The patient was placed under general anesthesia. She had voided prior to going to surgery. The abdomen was prepped with Betadine solution and properly draped. She had been on systemic antibiotics. I made a small incision through an old scar above the umbilicus where she had previous laparoscopy, dissected down to the abdominal wall which we raised with Palmer clamps. A small opening in the fascia was made, #0 Vicryl stay sutures. We entered directly the peritoneal cavity followed by 5 mm trocar. We insufflated slowly followed by the camera. There were no adhesions identified in the abdominal cavity and we had a space to work. We controlled the pneumoperitoneum with the Vicryl suture. Therefore, under direct visualization, I placed a 5 mm right upper quadrant port with preemptive local analgesia anesthetic of 1% Xylocaine. We identified the cecum that was quite mobile. As we elevated the cecum, we could see the appendix going down towards the pelvic area. At this point, we converted the 5 mm umbilical port to 11 mm under direct visualization and then we placed a 5 mm left lower quadrant port. The camera was in left lower quadrant. We elevated the cecum when identified a significant amount of veil structures coming in from the lateral abdominal wall going down to this cecal area. These went up towards the liver, not all the way to the liver but towards. The possibility of this may have been a vascular structure like a Mir's membrane. Further down, we were able to identify a veil that was cutting off the appendix in some ways again coming on towards the iliac crest and lateral to the abdominal wall and cecum. The appendix and attached to this area. Possibility of this being a cecal peritoneal band given his pain is chronic pain that the patient has had. The appendix was re-elevated and it was grossly normal. The mesoappendix was stuck to this area. Once we freed this up, we created a window between the cecum and the mesoappendix, then fired a stapler of purple KRUNAL. We then elevated the appendix to its mesentery and fired another KRUNAL stapler. We had little bleeder oozer along the mesentery of the appendix which we clipped couple times and cauterized. The appendix was placed in an Endopouch and taken out intact through the umbilical port. The area was then checked for hemostasis and appeared satisfactory. We did not free up all the bands down in towards the gutter the patient had. From the cecum, the veil like bands were freed up was mostly through the lower aspect of the cecum down towards the pelvic brim and laterally. Individual trocars removed and the last umbilical trocar. An 0 Vicryl suture was used as a [id number] close the umbilical opening and 4-0 Monocryl applied. The procedure was tolerated well by the patient. Estimated blood loss approximately 5 mL. The patient was taken to recovery room in good condition. I attest to the content of the Intraoperative Record and any orders documented therein. Any exception s are noted below.
[2017-08-07] MEDS ORDERED: TOPIRAMATE 25 MG TAB PO SCH ×2 (09:00→21:00)
[2017-08-07] MEDS: DICYCLOMINE HCL 10 MG CAP PO SCH ×2 (09:00→12:54)
[2017-08-07] MEDS ORDERED: RANITIDINE HCL 150 MG TAB PO SCH (09:00)
[2017-08-07] MEDS ORDERED: ESTRADIOL 1 MG TAB PO SCH (21:00)
== END 2017-08-07 16:05 | disposition home or self-care (01) ==
LOC: C.EDB 17:32 → C.MSN 23:20 → ENRESERV 08-07 00:37
PROVIDERS: ADMIT Surgery; ATTEND Surgery
DX: K65.8 Other peritonitis (principal); F17.200 Nicotine dependence, unspecified, uncomplicated; J45.909 Unspecified asthma, uncomplicated; J44.9 Chronic obstructive pulmonary disease, unspecified; Z90.711 Acquired absence of uterus with remaining cervical stump; Z90.721 Acquired absence of ovaries, unilateral; Z82.49 Family history of ischemic heart disease and other diseases of the circulatory system

== ENCOUNTER 2017-09-29 21:41 | Emergency (ER) | payer OTHER ==
[~2017-09-29] VITALS: Ht 154.9 cm; Wt 50.2 kg
[~2017-09-29 21:41] MED LIST changes: +RANI150T85 PO; +SUMA100T16 PO; -SUMA50TA15 PO; -ZNTT/150 PO
[2017-09-29 21:44] VITALS: BP 107/74; PULSE 68; TEMP 36.5; O2SAT 100; Ht 154.9 cm; Wt 50.2 kg
[2017-09-29] MEDS ORDERED: PENICILLIN HOME PACK 500MG (4 DOSES)BTL PO ONE (22:00)
[2017-09-29] MEDS ORDERED: PENI-82 PO (22:02)
--- NOTE | 2017-09-29 22:03 | EMERGENCY ROOM VISIT NOTE ---
History First contact with patient: 21:49 Chief Complaint: DENTAL PAIN Stated Complaint: EAR TOOTH PAIN L SIDE FACE Nursing Triage Summary: Pt reports left sided dental pain that started yesterday. Pt tried to get into dentist and did not have anything available soon. History of Present Illness The patient is a 36 year old female who presents to the Emergency Room with complaints of left upper dental pain. The patient reports that she has a hole in 1 of her left upper molars. She has had some pain for 1 week, but states the pain worsened yesterday. The pain is worse when she opens her mouth. She describes it as throbbing and states the pain is a 9/10. She called her dentist and states they did not have any available appointments. She did not make an appointment with the dentist. She denies recent illness or sore throat. She has been taking Tylenol, ibuprofen and Orajel without relief. She denies facial swelling, drainage or fevers. Review of Systems A complete 10 point review of systems was reviewed with the patient with pertinent positives and negatives as per history of present illness. All else were negative. Past Medical/Surgical History Medical Problems: (1) Acute appendicitis (2) Asthma (3) Bronchitis (4) section (5) Contusion of right leg (6) COPD (chronic obstructive pulmonary disease) (7) Ear pain (8) Endometriosis (9) Hair follicle infection (10) Headache (11) Leukocytosis (12) Migraine (13) Migraine (14) Migraines (15) Ovarian cyst (16) Ovarian cyst (17) Partial hysterectomy (18) Pharyngitis (19) Pharyngitis (20) Pneumonia (21) Productive cough (22) SOB (shortness of breath) (23) Tubal ligation (24) URI (upper respiratory infection) Surgical Problems: (1) History of right oophorectomy Family History FH: heart disease FHx: pulmonary embolism Social History Smoking Status: Current Every Day Smoker Alcohol Use: none Drug Use: none Marital Status: Housing Status: lives with family Occupation Status: employed Current/Historical Medications Scheduled Dicyclomine Hcl (Dicyclomine Hcl), 20 MG PO TID Estradiol (Estrace), 1 MG PO HS Fluticasone Furoate (Inhalatio (Arnuity Ellipta), 1 PUFF INH QAM Penicillin V Potassium (Veetids), 500 MG PO QID Ranitidine (Zantac), 150 MG PO BID Sumatriptan Succinate (Imitrex), 100 MG PO PRN Topiramate (Topamax), 50 MG PO QAM Topiramate (Topamax), 100 MG PO HS Scheduled PRN Albuterol (Ventolin Hfa), 2 PUFFS INH QID PRN for Shortness of Breath Meclizine Hcl (Meclizine Hcl), 25 MG PO TID PRN for Dizziness or Vertigo Physical Exam Vital Signs Date Time Temp Pulse Resp B/P (MAP) Pulse Ox O2 Delivery O2 Flow Rate FiO2 09/29/17 21:44 36.5 68 20 107/74 100 Room Air Physical Exam VITALS: Vitals are noted on the nurse's note and reviewed by myself. Vital signs stable. GENERAL: This is a 36-year-old female, in no acute distress, nondiaphoretic, well-developed well-nourished. HEAD: Normocephalic atraumatic. No facial swelling. EARS: External auditory canals clear, tympanic membranes pearly parks without erythema or effusion bilaterally. EYES: Pupils equal round and reactive to light and accommodation. MOUTH: Mucous membranes moist. No significant swelling or erythema of the gums. No drainage. NECK: Supple without nuchal rigidity. No lymphadenopathy. HEART: Regular rate and rhythm without murmurs gallops or rubs. LUNGS: Clear to auscultation bilaterally without wheezes, rales or rhonchi. NEURO: Patient was alert and oriented to person place and time. Medical Decision & Procedures Medications Administered Medications (Trade) Dose Ordered Sig/Augusto Route Start Time Stop Time Status Last Admin Dose Admin Penicillin V Potassium (Pen-Vk 500MG Home Pack) 1 homepack UD ONCE PO 09/29/17 22:00 09/29/17 22:01 DC 09/29/17 22:06 1 HOMEPACK Medical Decision Differential diagnosis includes periapical abscess, Shon's angina, facial cellulitis, among others. The patient is a 36-year-old female who presents today complaining of dental pain. No evidence of facial cellulitis or significant abscess on exam. Patient will be placed on antibiotics and was advised that she will need dental follow-up. Conservative measures were discussed. She verbalized understanding and was discharged home in good condition. Medication Reconcilliation Current Medication List: was personally reviewed by me Blood Pressure Screening Patient's blood pressure: Normal blood pressure Impression Primary Impression: Periapical abscess Departure Information Dispostion Home / Self-Care Condition GOOD Prescriptions Penicillin V Potassium (Veetids) 500 Mg Tab 500 MG PO QID for 10 Days, #40 TAB Prov: Roya Coates PA-C 09/29/17 Referrals Melo Antonio M.D. (MEDICAL) (PCP) Patient Instructions My [facility] Additional Instructions You have been treated in the Emergency Department for Dental Pain. You were prescribed Pen VK to be taken four times daily as prescribed. This is an antibiotic. All antibiotics have the potential to cause diarrhea. Stop this medication and contact a medical provider if you were to develop any significant adverse side effects including: wheezing, shortness of breath, passing out, vomiting, or a diffuse rash. Always take antibiotics as directed and COMPLETE the ENTIRE course regardless of the improvement of your symptoms. For pain control, you can use the following [id number] medicines (if >12 yo): - Regular strength (325mg/tab) Tylenol (acetaminophen) 2 tabs every 4-6 hours as needed. Do not exceed 12 tablets in a 24 hour period. Avoid taking more than 4 grams (4000 mg) of Tylenol per day. This includes any other sources of acetaminophen you may take on a regular basis. - Regular strength (200 mg/tab) Advil (ibuprofen) 1-2 tabs every 4-6 hours as needed. Do not exceed a dose of 3200 mg per day. Refrain from smoking cigarettes or using chewing tobacco until you have been evaluated by your dentist. Keeping beverages lukewarm and consuming soft foods can decrease your pain. Warm compresses over the affected area may offer some relief. You MUST seek evaluation of your dental pain by a dentist following your visit to the Emergency Department. The Emergency Department is not capable of treating dental issues long-term. You should call your dentist as soon as possible to make an appointment for evaluation of your dental pain. Return to the emergency department if you develop the following symptoms despite treatment course outlined above: fever, intractable pain, increased redness, swelling, or purulent discharge.
== END 2017-09-29 22:15 | disposition home or self-care (01) ==
LOC: C.EDB 21:43 → C.EDA 22:15
DX: K04.7 Periapical abscess without sinus (principal); J44.9 Chronic obstructive pulmonary disease, unspecified; F17.200 Nicotine dependence, unspecified, uncomplicated; Z79.3 Long term (current) use of hormonal contraceptives; Z79.51 Long term (current) use of inhaled steroids; Z82.49 Family history of ischemic heart disease and other diseases of the circulatory system

== ENCOUNTER 2018-02-18 20:49 | Emergency (ER) | payer OTHER ==
[~2018-02-18] VITALS: Ht 154.9 cm; Wt 47.7 kg
[2018-02-18 20:51] VITALS: TEMP 36.8; Ht 154.9 cm; Wt 47.7 kg
--- NOTE | 2018-02-18 21:30 | DIAGNOSTIC IMAGING REPORT ---
RIGHT FOOT 3 VIEWS CLINICAL HISTORY: Right foot injury. Stepped on by a cow. FINDINGS: 3 views of the right foot are obtained. No prior studies are available for comparison at the time of dictation. The skeletal structures are well mineralized. No acute fracture is identified. There is chronic posttraumatic deformity of the distal fourth and fifth metatarsals. The joint spaces of the foot are well-maintained. Dorsal soft tissue edema is noted. IMPRESSION: Dorsal soft tissue swelling with no acute fracture identified. Consider short-term radiographic follow-up if there is clinical concern for occult fracture. Electronically signed by: Santo Mcintosh M.D. 02/18/2018 9:29 PM Dictated Date/Time: 02/18/2018 9:27 PM
[2018-02-18 21:35] VITALS: BP 110/69; PULSE 63; O2SAT 99
[2018-02-18] MEDS ORDERED: TOPI100T20 PO (22:26)
--- NOTE | 2018-02-18 22:33 | EMERGENCY ROOM VISIT NOTE ---
History First contact with patient: 20:57 Chief Complaint: FOOT PAIN Stated Complaint: RT FOOT STEPPED ON BY COW History of Present Illness The patient is a 37 year old female who presents to the Emergency Room with complaints of an injury to her right foot. The patient states that she was stepped on by a cow. The injury occurred approximately 2 hours prior to arrival. She reports pain in the right foot which is worse with weightbearing. She rates the discomfort an 8/10. She has not taken any medications for her pain. She denies any numbness or weakness. She denies any other injuries. Review of Systems A complete 6 point review of systems was reviewed with the patient with pertinent positives and negatives as per history of present illness. All else were negative. Past Medical/Surgical History Medical Problems: (1) Acute appendicitis (2) Asthma (3) Bronchitis (4) section (5) Contusion of right leg (6) COPD (chronic obstructive pulmonary disease) (7) Ear pain (8) Endometriosis (9) Hair follicle infection (10) Headache (11) Leukocytosis (12) Migraine (13) Migraine (14) Migraines (15) Ovarian cyst (16) Ovarian cyst (17) Partial hysterectomy (18) Pharyngitis (19) Pharyngitis (20) Pneumonia (21) Productive cough (22) SOB (shortness of breath) (23) Tubal ligation (24) URI (upper respiratory infection) Surgical Problems: (1) History of right oophorectomy Family History FH: heart disease FHx: pulmonary embolism Social History Smoking Status: Current Every Day Smoker Alcohol Use: none Drug Use: none Marital Status: Housing Status: lives with family Occupation Status: employed Current/Historical Medications Scheduled Dicyclomine Hcl (Dicyclomine Hcl), 20 MG PO TID Estradiol (Estrace), 1 MG PO HS Fluticasone Furoate (Inhalatio (Arnuity Ellipta), 1 PUFF INH QAM Ranitidine (Zantac), 150 MG PO BID Sumatriptan Succinate (Imitrex), 100 MG PO PRN Topiramate (Topamax), 100 MG PO BID Scheduled PRN Albuterol (Ventolin Hfa), 2 PUFFS INH QID PRN for Shortness of Breath Meclizine Hcl (Meclizine Hcl), 25 MG PO TID PRN for Dizziness or Vertigo Physical Exam Vital Signs Date Time Temp Pulse Resp B/P (MAP) Pulse Ox O2 Delivery O2 Flow Rate FiO2 02/18/18 21:35 63 20 110/69 99 Room Air 02/18/18 20:51 36.8 86 20 117/74 95 Room Air Physical Exam VITALS: Vitals are noted on the nurse's note and reviewed by myself. Vital signs stable. GENERAL: This is a 37-year-old female, in no acute distress, nondiaphoretic, well-developed well-nourished. SKIN: No lacerations or abrasions noted. MUSCULOSKELETAL: Ecchymosis and edema noted to the dorsal, lateral aspect of the right foot. There is tenderness to palpation of the dorsal aspect of the foot, along the distal aspects of the third fourth and fifth metatarsals. Full range of motion of the toes. Capillary refill within 2 seconds. NEURO: Patient was alert and oriented to person place and time. Distal sensation intact. Medical Decision & Procedures ER Provider Diagnostic Interpretation: RIGHT FOOT 3 VIEWS CLINICAL HISTORY: Right foot injury. Stepped on by a cow. FINDINGS: 3 views of the right foot are obtained. No prior studies are available for comparison at the time of dictation. The skeletal structures are well mineralized. No acute fracture is identified. There is chronic posttraumatic deformity of the distal fourth and fifth metatarsals. The joint spaces of the foot are well-maintained. Dorsal soft tissue edema is noted. IMPRESSION: Dorsal soft tissue swelling with no acute fracture identified. Consider short-term radiographic follow-up if there is clinical concern for occult fracture. Medical Decision Differential diagnosis includes fracture, contusion, sprain, among others. The patient was evaluated as above. X-ray of the foot was obtained and read by radiology with no acute fractures. Patient was placed in a postoperative shoe. Conservative measures were discussed with the patient. She was advised to follow-up with her primary care provider for repeat x-rays if the pain does not improve. She was given information for orthopedic follow-up as well. She verbalized understanding of my assessment and treatment plan and was discharged home in good condition. Medication Reconcilliation Current Medication List: was personally reviewed by me Blood Pressure Screening Patient's blood pressure: Normal blood pressure Impression Primary Impression: Contusion of foot Departure Information Dispostion Home / Self-Care Condition GOOD Referrals No Doctor, Assigned (PCP) Bj Betancur M.D. Patient Instructions My [facility] Additional Instructions You have been treated in the Emergency Department for a foot injury. Your x- ray did not show any fracture. If you are still having persistent pain or difficulty walking in 1-2 weeks, you should follow-up with your primary care provider or orthopedics for a repeat x-ray. For pain control, you can use the following [id number] medicines (if >12 yo): - Regular strength (325mg/tab) Tylenol (acetaminophen) 2 tabs every 4-6 hours as needed. Do not exceed 12 tablets in a 24 hour period. Avoid taking more than 4 grams (4000 mg) of Tylenol per day. This includes any other sources of acetaminophen you may take on a regular basis. - Regular strength (200 mg/tab) Advil (ibuprofen) 1-2 tabs every 4-6 hours as needed. Do not exceed a dose of 3200 mg per day. If this is a recent injury (<24 hrs), ice can be applied to the area of pain for the first 3 days to help decrease pain and inflammation. Wear the postoperative shoe as needed for pain in the foot/difficulty walking. Return to the Emergency Department if your current symptoms worsen despite treatment course outlined above, or if you develop any of the following symptoms : intractable pain despite aforementioned treatment course or new onset of numbness or tingling of the foot. Problem Qualifiers Primary Impression: Contusion of foot Encounter type: initial encounter Laterality: right Qualified Codes: S90.31XA - Contusion of right foot, initial encounter
== END 2018-02-18 22:39 | disposition home or self-care (01) ==
LOC: C.EDB 20:50 → C.EDD 22:39
DX: S90.31XA Contusion of right foot, initial encounter (principal); W55.29XA Other contact with cow, initial encounter; J45.909 Unspecified asthma, uncomplicated; J44.9 Chronic obstructive pulmonary disease, unspecified; Z90.710 Acquired absence of both cervix and uterus; Z87.01 Personal history of pneumonia (recurrent); Z98.51 Tubal ligation status; Z90.721 Acquired absence of ovaries, unilateral; F17.210 Nicotine dependence, cigarettes, uncomplicated; Z79.899 Other long term (current) drug therapy